=== PATIENT | female | born 1955 | race Caucasian/White ===

== ENCOUNTER 2023-11-24 11:05 | Inpatient (IN) | payer OTHER, MEDICARE ==
[~2023-11-24] VITALS: Ht 167.6 cm; Wt 97.5 kg
[2023-11-24] VITALS (7 sets, daily range): BP systolic 136–137; BP diastolic 69–95; PULSE 76–86; RESP 18–20; TEMP 97.9–98.6; O2SAT 97–99
[~2023-11-24 11:05] MED LIST: METOPROLOL SUCC50 MG PO
[2023-11-24 11:57] LABS: BASOPHILS % 0.1 % (0.0-1.0); HEMATOCRIT 41.2 % (34.2-44.1); HEMOGLOBIN 13.7 g/dL (12.0-16.0); LYMPHOCYTES % 10.9 % (18.0-39.1); MEAN CORPUSCULAR HEMOGLOBIN 31.5 pg (28-32); MEAN CORPUSCULAR HGB CONC 33.3 g/dL (31-35); MEAN CORPUSCULAR VOLUME 94.7 fL (81-99); MONOCYTES # (AUTO) 0.6 (0.2-0.8); MONOCYTES % 6.7 % (4.4-11.3); NEUTROPHILS # (AUTO) 7.5 (2.1-6.9); NEUTROPHILS % 81.9 % (38.7-80.0); PLATELET COUNT 223 x10e3/uL (140-360); RED BLOOD COUNT 4.35 x10e6/uL (3.6-5.1); RED CELL DISTRIBUTION WIDTH 12.5 % (11.7-14.4)
[2023-11-24] MEDS ORDERED: ONDANSETRON HCL INJ 2MG/ML 2ML 2 MG/ML VIAL ONE (12:00)
[2023-11-24] MEDS ORDERED: SODIUM CHLORIDE 0.9% 1000ML 1,000 ML ONE (12:01)
[2023-11-24] MEDS: ONDANSETRON HCL INJ 2MG/ML 2ML 2 MG/ML VIAL IV STA (12:04)
[2023-11-24] MEDS: SODIUM CHLORIDE 0.9% 1000ML 1,000 ML IV ONE (12:05)
[2023-11-24 12:10] LABS: ALANINE AMINOTRANSFERASE 23 IU/L (0-55); ALBUMIN 4.2 g/dL (3.5-5.0); ALBUMIN/GLOBULIN RATIO 1.3 (0.8-2.0); ALKALINE PHOSPHATASE 116 IU/L (40-150); ANION GAP 14.9 mmol/L (8-16); BILIRUBIN,TOTAL 0.6 mg/dL (0.2-1.2); BLOOD UREA NITROGEN 13 mg/dL (7-26); BUN/CREATININE RATIO 18 (6-25); CALCIUM 9.4 mg/dL (8.4-10.2); CARBON DIOXIDE 27 mmol/L (22-29); CHLORIDE 101 mmol/L (98-107); CREATINE KINASE 40 IU/L (29-168); CREATININE, SERUM 0.71 mg/dL (0.57-1.11); EST GLOMERULAR FILTRATION RATE 93 ML/MIN (>=60); GLUCOSE 124 mg/dL (74-118); POTASSIUM 3.9 mmol/L (3.5-5.1); SODIUM 139 mmol/L (136-145); TOTAL PROTEIN 7.5 g/dL (6.5-8.1)
[2023-11-24 12:20] LABS: TROPONIN I < 0.001 ng/mL (0-0.300)
[2023-11-24] MEDS ORDERED: BELLADONNA ALK/PHENOBARBITAL 5 ML UDC PO STA (12:26)
[2023-11-24] MEDS ORDERED: MAGNESIUM/ALUMINUM/SIMETHICONE 30 ML UDC PO ONE (12:30)
[2023-11-24] MEDS ORDERED: LIDOCAINE VISC 2% SOLN 15 ML UDC PO ONE (12:30)
[2023-11-24] MEDS: DONNATAL/LIDOCAINE/MAALOX 30 ML SUSP PO ONE (12:41)
[2023-11-24] MEDS ORDERED: IOPAMIDOL 370 MG/ML 100 ML INFUS..BTL INJ ONE (14:26)
[2023-11-24] MEDS: ONDANSETRON HCL INJ 2MG/ML 2ML 2 MG/ML VIAL IV PRN (14:45)
[2023-11-24] MEDS: Morphine 4mg INJECTION 4 MG/ML INJ IV PRN (14:46)
[2023-11-24] MEDS: ASPIRIN 81 MG CHEW TAB PO ONE (14:46)
[2023-11-24] MEDS: SODIUM CHLORIDE 0.9% 1000ML 1,000 ML IV SCH (15:59)
[2023-11-24] MEDS ORDERED: CENTRUM ADULTS1 EACH PO (16:51)
[2023-11-24] MEDS ORDERED: VITAMIN D350 MC1 PO (16:51)
[2023-11-24] MEDS ORDERED: OLMESARTAN-HCT1 EACH PO (16:51)
[2023-11-24] MEDS ORDERED: PRESERVISION A1 EAC2 (16:51)
[2023-11-24] MEDS ORDERED: ESCITALOPRAM OX20 MG PO (16:51)
[2023-11-24] MEDS ORDERED: ANASTROZOLE PO (16:51)
[2023-11-24] MEDS ORDERED: CALCIUM MAGNES1 EAC2 (16:51)
[2023-11-24] MEDS ORDERED: ATORVASTATIN CA20 MG PO (16:51)
[2023-11-24] MEDS: METOCLOPRAMIDE HCL 10 MG/2ML VIAL IV SCH (17:40)
[2023-11-25] VITALS (10 sets, daily range): BP systolic 121–141; BP diastolic 59–79; PULSE 50–89; RESP 17–20; TEMP 97.5–99.4; O2SAT 94–100
[2023-11-25] MEDS: ONDANSETRON HCL INJ 2MG/ML 2ML 2 MG/ML VIAL IV STA (01:51)
[2023-11-25] MEDS ORDERED: ONDANSETRON HCL INJ 2MG/ML 2ML 2 MG/ML VIAL IV PRN (02:15)
[2023-11-25 06:05] LABS: BASOPHILS % 0.1 % (0.0-1.0); HEMOGLOBIN 11.6 g/dL (12.0-16.0); LYMPHOCYTES % 10.5 % (18.0-39.1); MEAN CORPUSCULAR HEMOGLOBIN 31.3 pg (28-32); MEAN CORPUSCULAR HGB CONC 32.2 g/dL (31-35); MONOCYTES # (AUTO) 0.8 (0.2-0.8); MONOCYTES % 8.4 % (4.4-11.3); NEUTROPHILS # (AUTO) 7.5 (2.1-6.9); NEUTROPHILS % 80.3 % (38.7-80.0); PLATELET COUNT 163 x10e3/uL (140-360); RED BLOOD COUNT 3.71 x10e6/uL (3.6-5.1); RED CELL DISTRIBUTION WIDTH 12.7 % (11.7-14.4); WHITE BLOOD COUNT 9.36 x10e3/uL (4.8-10.8)
[2023-11-25 06:26] LABS: ANION GAP 11.5 mmol/L (8-16); CALCIUM 8.1 mg/dL (8.4-10.2); CREATININE, SERUM 0.63 mg/dL (0.57-1.11); POTASSIUM 3.5 mmol/L (3.5-5.1)
[2023-11-25] MEDS: METOPROLOL SUCCINATE 50 MG TAB XL PO SCH (08:41)
[2023-11-25] MEDS ORDERED: BENZOCAINE/TETRACAINE/BUTAMBEN AERO SPRAY 56 GM CAN ONE (16:23)
[2023-11-25] MEDS: ALBUTEROL SULF 0.083% NEB SOLN 3 ML NEB NEB ONE (17:06)
[2023-11-25] MEDS: ATORVASTATIN 20 MG TAB PO SCH (20:47)
[2023-11-26] VITALS (11 sets, daily range): BP systolic 112–141; BP diastolic 61–84; PULSE 71–94; RESP 15–19; TEMP 97.7–98.2; O2SAT 94–99
[2023-11-26] MEDS ORDERED: PROPOFOL IV EMULSION 10 MG/ML 20 ML VIAL ONE ×2 (11:03→11:49)
[2023-11-26] MEDS ORDERED: ONDANSETRON HCL INJ 2MG/ML 2ML 2 MG/ML VIAL ONE (11:03)
[2023-11-26] MEDS ORDERED: SEVOFLURANE INHAL SOLN 250 ML PEN BTL ONE ×2 (11:03→11:49)
[2023-11-26] MEDS ORDERED: LIDOCAINE HCL 2% LOCAL INJ 5 ML SDV VIAL INJ ONE ×2 (11:03→11:49)
[2023-11-26] MEDS ORDERED: DEXAMETHASONE SOD PHOS INJ 4 MG/ML SDV ONE (11:03)
[2023-11-26] MEDS ORDERED: ACETAMINOPHEN 1000 MG/100 ML IV ONE (11:03)
[2023-11-26] MEDS ORDERED: SUCCINYLCHOLINE CHLORIDE 20 MG/ML 10ML VIAL ONE ×2 (11:03→11:49)
[2023-11-26] MEDS ORDERED: ROCURONIUM BROMIDE 10 MG/ML 5ML VIAL IV ONE (11:03)
[2023-11-26] MEDS ORDERED: METOCLOPRAMIDE HCL 10 MG/2ML VIAL ONE (11:49)
[2023-11-26] MEDS ORDERED: PROPOFOL IV EMULSION 10 MG/ML 50 ML VIAL IV ONE (11:49)
[2023-11-26] MEDS ORDERED: FENTANYL CITRATE/PF 100MCG/2 ML INJ ONE (12:58)
[2023-11-26] MEDS ORDERED: KETAMINE 50MG/5ML SYR ONE (16:21)
[2023-11-26] MEDS ORDERED: ACETAMINOPHEN 1000 MG/100 ML IV PRN (18:45)
[2023-11-26] MEDS: SODIUM CHLORIDE 0.9% 250ML IRRIG IR SCH (18:45)
[2023-11-26] MEDS: HYDROMORPHONE 0.2MG/ML-SOD CHL 30ML PCA SYRINGE IV PRN (18:55)
[2023-11-26] MEDS: ONDANSETRON HCL INJ 2MG/ML 2ML 2 MG/ML VIAL ONE (19:35)
[2023-11-27] VITALS (22 sets, daily range): BP systolic 90–121; BP diastolic 48–79; PULSE 77–110; RESP 13–21; TEMP 97.9–98.4; O2SAT 89–99
[2023-11-27] MEDS: ALBUTEROL SULF 0.083% NEB SOLN 3 ML NEB ONE (06:07)
[2023-11-27 06:27] LABS: BASOPHILS % 0.2 % (0.0-1.0); HEMATOCRIT 33.3 % (34.2-44.1); HEMOGLOBIN 10.5 g/dL (12.0-16.0); LYMPHOCYTES # (AUTO) 1.5 (1.0-3.2); LYMPHOCYTES % 12.5 % (18.0-39.1); MEAN CORPUSCULAR HEMOGLOBIN 31.5 pg (28-32); MEAN CORPUSCULAR HGB CONC 31.5 g/dL (31-35); MONOCYTES # (AUTO) 1.3 (0.2-0.8); MONOCYTES % 10.7 % (4.4-11.3); NEUTROPHILS # (AUTO) 9.3 (2.1-6.9); NEUTROPHILS % 76.1 % (38.7-80.0); PLATELET COUNT 170 x10e3/uL (140-360); RED BLOOD COUNT 3.33 x10e6/uL (3.6-5.1); RED CELL DISTRIBUTION WIDTH 12.7 % (11.7-14.4); WHITE BLOOD COUNT 12.19 x10e3/uL (4.8-10.8)
[2023-11-27 06:55] LABS: ANION GAP 13.2 mmol/L (8-16); CALCIUM 7.7 mg/dL (8.4-10.2); CREATININE, SERUM 0.61 mg/dL (0.57-1.11)
[2023-11-27 07:15] LABS: POTASSIUM 3.2 mmol/L (3.5-5.1)
[2023-11-27] MEDS ORDERED: POTASSIUM CHLORIDE 20 MEQ in SODIUM CHLORIDE 0.45% 1,000 ML IV SCH (07:45)
[2023-11-27] MEDS: SOD CHL 0.45%/POT CHL 20MEQ 1,000 ML IV SCH (09:02)
[2023-11-27] MEDS: ROPIVACAINE 246.25 MG, EPINEPHRINE HCL 1:1000 1ML 0.5 MG, CLONIDINE HCL 0.08 MG, KETORO... IV ONE (19:27)
[2023-11-28] VITALS (12 sets, daily range): BP systolic 97–127; BP diastolic 55–66; PULSE 84–102; RESP 15–28; TEMP 98.2–100.7; O2SAT 93–100
[2023-11-28 06:36] LABS: BASOPHILS % 0.1 % (0.0-1.0); HEMATOCRIT 27.7 % (34.2-44.1); HEMOGLOBIN 8.9 g/dL (12.0-16.0); LYMPHOCYTES # (AUTO) 1.1 (1.0-3.2); LYMPHOCYTES % 5.3 % (18.0-39.1); MEAN CORPUSCULAR HEMOGLOBIN 31.6 pg (28-32); MEAN CORPUSCULAR HGB CONC 32.1 g/dL (31-35); MEAN CORPUSCULAR VOLUME 98.2 fL (81-99); MONOCYTES # (AUTO) 2.2 (0.2-0.8); MONOCYTES % 10.6 % (4.4-11.3); NEUTROPHILS # (AUTO) 17.2 (2.1-6.9); NEUTROPHILS % 83.4 % (38.7-80.0); PLATELET COUNT 228 x10e3/uL (140-360); RED BLOOD COUNT 2.82 x10e6/uL (3.6-5.1); RED CELL DISTRIBUTION WIDTH 12.8 % (11.7-14.4); WHITE BLOOD COUNT 20.67 x10e3/uL (4.8-10.8)
[2023-11-28 07:10] LABS: ANION GAP 10.8 mmol/L (8-16); CALCIUM 8.1 mg/dL (8.4-10.2); CREATININE, SERUM 0.58 mg/dL (0.57-1.11); POTASSIUM 3.8 mmol/L (3.5-5.1)
[2023-11-28] MEDS ORDERED: ACETAMINOPHEN 1000 MG/100 ML IV PRN (21:45)
[2023-11-29] VITALS (21 sets, daily range): BP systolic 108–139; BP diastolic 59–90; PULSE 86–116; RESP 15–26; TEMP 97.3–98.8; O2SAT 92–100
[2023-11-29 14:40] LABS: ANION GAP 21.9 mmol/L (8-16); CALCIUM 8.7 mg/dL (8.4-10.2); CREATININE, SERUM 0.56 mg/dL (0.57-1.11); POTASSIUM 3.9 mmol/L (3.5-5.1)
[2023-11-29] MEDS: ONDANSETRON HCL INJ 2MG/ML 2ML 2 MG/ML VIAL IV PRN (16:55)
[2023-11-29 18:02] LABS: BASOPHILS % 0.2 % (0.0-1.0); EOSINOPHILS # (AUTO) 0.1 (0.0-0.4); EOSINOPHILS % 0.7 % (0.0-6.0); HEMATOCRIT 26.4 % (34.2-44.1); HEMOGLOBIN 8.7 g/dL (12.0-16.0); LYMPHOCYTES % 4.7 % (18.0-39.1); MEAN CORPUSCULAR HEMOGLOBIN 31.6 pg (28-32); MONOCYTES % 9.8 % (4.4-11.3); NEUTROPHILS # (AUTO) 17.1 (2.1-6.9); NEUTROPHILS % 83.9 % (38.7-80.0); PLATELET COUNT 307 x10e3/uL (140-360); RED BLOOD COUNT 2.75 x10e6/uL (3.6-5.1); RED CELL DISTRIBUTION WIDTH 12.7 % (11.7-14.4); WHITE BLOOD COUNT 20.38 x10e3/uL (4.8-10.8)
[2023-11-30] VITALS (12 sets, daily range): BP systolic 121–130; BP diastolic 73–86; PULSE 93–119; RESP 18–24; TEMP 98–98.7; O2SAT 92–100
[2023-11-30 05:41] LABS: BASOPHILS % 0.2 % (0.0-1.0); EOSINOPHILS # (AUTO) 0.2 (0.0-0.4); HEMOGLOBIN 8.2 g/dL (12.0-16.0); LYMPHOCYTES % 5.3 % (18.0-39.1); MEAN CORPUSCULAR HEMOGLOBIN 31.7 pg (28-32); MEAN CORPUSCULAR HGB CONC 32.8 g/dL (31-35); MEAN CORPUSCULAR VOLUME 96.5 fL (81-99); MONOCYTES # (AUTO) 2.2 (0.2-0.8); MONOCYTES % 11.4 % (4.4-11.3); NEUTROPHILS # (AUTO) 15.8 (2.1-6.9); NEUTROPHILS % 81.5 % (38.7-80.0); PLATELET COUNT 321 x10e3/uL (140-360); RED BLOOD COUNT 2.59 x10e6/uL (3.6-5.1); RED CELL DISTRIBUTION WIDTH 12.7 % (11.7-14.4); WHITE BLOOD COUNT 19.41 x10e3/uL (4.8-10.8)
[2023-11-30 06:03] LABS: ANION GAP 12.9 mmol/L (8-16); CALCIUM 8.2 mg/dL (8.4-10.2); CREATININE, SERUM 0.54 mg/dL (0.57-1.11); POTASSIUM 3.9 mmol/L (3.5-5.1)
[2023-11-30] MEDS: FUROSEMIDE INJ 10 MG/ML 4 ML VIAL IV ONE (14:13)
[2023-11-30] MEDS: BISACODYL 10 MG SUPP PR ONE (14:13)
[2023-11-30] MEDS: LEVALBUTEROL HCL SOLN NEBU 0.63 MG/3 ML NEB IH SCH (14:47)
[2023-11-30] MEDS: HYDROMORPHONE 1MG/1ML INJ IV PRN (16:10)
[2023-11-30] MEDS ORDERED: LEVALBUTEROL 45 MCG IH SCH (18:00)
[2023-12-01] VITALS (11 sets, daily range): BP systolic 102–124; BP diastolic 67–80; PULSE 98–120; RESP 17–22; TEMP 98.1–98.9; O2SAT 97–100
[2023-12-01 06:01] LABS: ANION GAP 12.4 mmol/L (8-16); CALCIUM 8.1 mg/dL (8.4-10.2); CREATININE, SERUM 0.53 mg/dL (0.57-1.11)
[2023-12-01 06:02] LABS: POTASSIUM 3.4 mmol/L (3.5-5.1)
[2023-12-01] MEDS: OLMESARTAN 20 MG TAB PO SCH (08:55)
[2023-12-01] MEDS: HYDROCHLOROTHIAZIDE 25 MG TAB PO SCH (08:56)
[2023-12-01] MEDS ORDERED: HYDROCHLOROTHIAZIDE PO SCH (09:00)
[2023-12-01] MEDS ORDERED: OLMESARTAN PO SCH (09:00)
[2023-12-01] MEDS ORDERED: [UNRECOGNIZED DRUG - OTHER] PO SCH (09:00)
[2023-12-01] MEDS: FUROSEMIDE INJ 10 MG/ML 4 ML VIAL IV ONE (12:04)
[2023-12-01] MEDS: PANTOPRAZOLE SOD 40 MG TABEC PO SCH (12:04)
[2023-12-01] MEDS: HYDROCODONE/APAP 7.5MG-325MG 1 EA TAB PO PRN (14:24)
[2023-12-01] MEDS: POTASSIUM CHLORIDE 20MEQ/100ML 100 ML IV SCH (14:49)
[2023-12-02] VITALS (12 sets, daily range): BP systolic 89–121; BP diastolic 46–70; PULSE 67–118; RESP 17–20; TEMP 97.8–99.4; O2SAT 94–100
[2023-12-02 07:44] LABS: BASOPHILS % 0.2 % (0.0-1.0); EOSINOPHILS # (AUTO) 0.4 (0.0-0.4); EOSINOPHILS % 1.7 % (0.0-6.0); HEMATOCRIT 23.5 % (34.2-44.1); LYMPHOCYTES # (AUTO) 1.4 (1.0-3.2); LYMPHOCYTES % 6.4 % (18.0-39.1); MEAN CORPUSCULAR HEMOGLOBIN 31.3 pg (28-32); MEAN CORPUSCULAR HGB CONC 33.2 g/dL (31-35); MEAN CORPUSCULAR VOLUME 94.4 fL (81-99); MONOCYTES # (AUTO) 2.3 (0.2-0.8); MONOCYTES % 10.8 % (4.4-11.3); NEUTROPHILS # (AUTO) 16.9 (2.1-6.9); NEUTROPHILS % 79.9 % (38.7-80.0); PLATELET COUNT 442 x10e3/uL (140-360); RED BLOOD COUNT 2.49 x10e6/uL (3.6-5.1)
[2023-12-02 07:48] LABS: HEMOGLOBIN 7.8 g/dL (12.0-16.0)
[2023-12-02 07:56] LABS: EOSINOPHILS % (MANUAL) 2 % (0-7); LYMPHOCYTES % (MANUAL) 5 % (19-48); MONOCYTES % (MANUAL) 3 % (3.4-9.0); NEUTROPHILS % (MANUAL) 90 % (40-74); NUCLEATED RED BLOOD CELLS 1
[2023-12-02 07:58] LABS: PLATELET ESTIMATE ADEQUATE; PLATELET MORPHOLOGY COMMENT NORMAL; RBC MORPHOLOGY COMMENT NORMAL
[2023-12-02 09:52] LABS: ALANINE AMINOTRANSFERASE 22 IU/L (0-55); ALBUMIN 1.8 g/dL (3.5-5.0); ALBUMIN/GLOBULIN RATIO 0.5 (0.8-2.0); ALKALINE PHOSPHATASE 115 IU/L (40-150); BILIRUBIN,TOTAL 0.6 mg/dL (0.2-1.2); BLOOD UREA NITROGEN < 5 mg/dL (7-26); BUN/CREATININE RATIO 10 (6-25); CALCIUM 8.1 mg/dL (8.4-10.2); CHLORIDE 98 mmol/L (98-107); CREATININE, SERUM 0.48 mg/dL (0.57-1.11); EST GLOMERULAR FILTRATION RATE 104 ML/MIN (>=60); GLUCOSE 133 mg/dL (74-118); SODIUM 137 mmol/L (136-145); TOTAL PROTEIN 5.2 g/dL (6.5-8.1)
[2023-12-02 09:53] LABS: POTASSIUM 2.9 mmol/L (3.5-5.1)
[2023-12-02 10:27] LABS: ANION GAP 12.9 mmol/L (8-16); CARBON DIOXIDE 28 mmol/L (22-29)
[2023-12-02] MEDS: POTASSIUM CHLORIDE 20 MEQ TAB CR PO ONE (12:33)
[2023-12-03] VITALS (13 sets, daily range): BP systolic 90–106; BP diastolic 50–68; PULSE 101–121; RESP 18–20; TEMP 97.8–100.2; O2SAT 18–97
[2023-12-03] MEDS ORDERED: MAGNESIUM SULFATE 2GM/50ML 50 ML IV ONE (04:45)
[2023-12-03 06:36] LABS: BASOPHILS # (AUTO) 0.1 (0.0-0.1); BASOPHILS % 0.2 % (0.0-1.0); EOSINOPHILS # (AUTO) 0.3 (0.0-0.4); EOSINOPHILS % 1.3 % (0.0-6.0); HEMATOCRIT 23.5 % (34.2-44.1); HEMOGLOBIN 7.8 g/dL (12.0-16.0); LYMPHOCYTES # (AUTO) 1.5 (1.0-3.2); MEAN CORPUSCULAR HGB CONC 33.2 g/dL (31-35); MEAN CORPUSCULAR VOLUME 93.3 fL (81-99); MONOCYTES # (AUTO) 2.7 (0.2-0.8); MONOCYTES % 10.5 % (4.4-11.3); NEUTROPHILS # (AUTO) 20.1 (2.1-6.9); NEUTROPHILS % 79.4 % (38.7-80.0); PLATELET COUNT 520 x10e3/uL (140-360); RED BLOOD COUNT 2.52 x10e6/uL (3.6-5.1); RED CELL DISTRIBUTION WIDTH 13.2 % (11.7-14.4); WHITE BLOOD COUNT 25.31 x10e3/uL (4.8-10.8)
[2023-12-03 07:26] LABS: ALBUMIN 1.7 g/dL (3.5-5.0); ALBUMIN/GLOBULIN RATIO 0.5 (0.8-2.0); BILIRUBIN,TOTAL 0.7 mg/dL (0.2-1.2); CREATININE, SERUM 0.5 mg/dL (0.57-1.11); TOTAL PROTEIN 5.3 g/dL (6.5-8.1)
[2023-12-03] MEDS: MAGNESIUM SULFATE 2GM/50ML 50 ML IV ONE (09:19)
[2023-12-03 09:54] LABS: LYMPHOCYTES % (MANUAL) 9 % (19-48); MONOCYTES % (MANUAL) 7 % (3.4-9.0); NEUTROPHILS % (MANUAL) 84 % (40-74); NUCLEATED RED BLOOD CELLS 1; PLATELET ESTIMATE SLIGHTLY INCREASED; PLATELET MORPHOLOGY COMMENT NORMAL; RBC MORPHOLOGY COMMENT NORMAL
[2023-12-03 15:47] LABS: CALCIUM 8.2 mg/dL (8.4-10.2); POTASSIUM 3.5 mmol/L (3.5-5.1)
[2023-12-03 15:58] LABS: ANION GAP 21.5 mmol/L (8-16)
[2023-12-03] MEDS: SODIUM CHLORIDE 0.9% 1000ML 1,000 ML IV ONE (21:38)
[2023-12-03] MEDS: ACETAMINOPHEN 325 MG TAB PO PRN (21:39)
[2023-12-03] MEDS: Vancomycin IV 1 GM in SODIUM CHLORIDE 0.9% 250ML 250 ML IV ONE (21:39)
[2023-12-04] VITALS (11 sets, daily range): BP systolic 102–123; BP diastolic 57–74; PULSE 61–118; RESP 16–24; TEMP 97.7–99.5; O2SAT 94–100
[2023-12-04 06:40] LABS: BASOPHILS # (AUTO) 0.1 (0.0-0.1); BASOPHILS % 0.3 % (0.0-1.0); EOSINOPHILS # (AUTO) 0.1 (0.0-0.4); EOSINOPHILS % 0.3 % (0.0-6.0); HEMOGLOBIN 8.4 g/dL (12.0-16.0); LYMPHOCYTES # (AUTO) 0.8 (1.0-3.2); LYMPHOCYTES % 4.1 % (18.0-39.1); MEAN CORPUSCULAR HEMOGLOBIN 31.1 pg (28-32); MEAN CORPUSCULAR HGB CONC 33.6 g/dL (31-35); MEAN CORPUSCULAR VOLUME 92.6 fL (81-99); MONOCYTES # (AUTO) 0.9 (0.2-0.8); MONOCYTES % 4.9 % (4.4-11.3); NEUTROPHILS # (AUTO) 16.6 (2.1-6.9); NEUTROPHILS % 89.3 % (38.7-80.0); PLATELET COUNT 526 x10e3/uL (140-360); RED CELL DISTRIBUTION WIDTH 13.5 % (11.7-14.4); WHITE BLOOD COUNT 18.62 x10e3/uL (4.8-10.8)
[2023-12-04 07:29] LABS: ALBUMIN 1.6 g/dL (3.5-5.0); ALBUMIN/GLOBULIN RATIO 0.4 (0.8-2.0); BILIRUBIN,TOTAL 0.8 mg/dL (0.2-1.2); CALCIUM 9.1 mg/dL (8.4-10.2); CREATININE, SERUM 0.54 mg/dL (0.57-1.11); TOTAL PROTEIN 5.3 g/dL (6.5-8.1)
[2023-12-04 08:37] LABS: INR 1.16; PROTHROMBIN TIME 15.4 seconds (11.9-14.5)
[2023-12-04 08:38] LABS: PARTIAL THROMBOPLASTIN TIME 29.2 seconds (23.8-35.5)
[2023-12-04 09:19] LABS: ANION GAP 15.8 mmol/L (8-16); POTASSIUM 3.8 mmol/L (3.5-5.1)
[2023-12-04 11:24] LABS: BAND NEUTROPHILS % (MANUAL) 3 %; LYMPHOCYTES % (MANUAL) 6 % (19-48); MONOCYTES % (MANUAL) 10 % (3.4-9.0); NEUTROPHILS % (MANUAL) 81 % (40-74); PLATELET ESTIMATE ADEQUATE; PLATELET MORPHOLOGY COMMENT NORMAL
[2023-12-04] MEDS: FENTANYL CITRATE/PF 100MCG/2 ML INJ IV ONE ×2 (11:45→12:30)
[2023-12-04] MEDS: ONDANSETRON HCL INJ 2MG/ML 2ML 2 MG/ML VIAL IV ONE (11:45)
[2023-12-04 13:27] LABS: BODY FLUID APPEARANCE TURBID; BODY FLUID COLOR STRAW; BODY FLUID TYPE PERITONEAL
[2023-12-04 13:28] LABS: RBC,BODY FLUID 35000 cells/uL; WBC,BODY FLUID 21692 cells/uL
[2023-12-04] MEDS: FLUCONAZOLE 200 MG/100 ML 100 ML IV SCH (14:54)
[2023-12-04] MEDS: METOPROLOL SUCCINATE 50 MG TAB XL PO SCH (16:01)
[2023-12-04] MEDS: Vancomycin IV 1 GM in SODIUM CHLORIDE 0.9% 250ML 250 ML IV SCH (16:03)
[2023-12-05] VITALS (20 sets, daily range): BP systolic 73–110; BP diastolic 49–70; PULSE 87–123; RESP 16–27; TEMP 98–98.9; O2SAT 94–97
[2023-12-05 06:21] LABS: BASOPHILS # (AUTO) 0.1 (0.0-0.1); BASOPHILS % 0.2 % (0.0-1.0); EOSINOPHILS # (AUTO) 0.1 (0.0-0.4); EOSINOPHILS % 0.2 % (0.0-6.0); HEMATOCRIT 24.8 % (34.2-44.1); HEMOGLOBIN 8.3 g/dL (12.0-16.0); LYMPHOCYTES # (AUTO) 1.1 (1.0-3.2); LYMPHOCYTES % 4.3 % (18.0-39.1); MEAN CORPUSCULAR HGB CONC 33.5 g/dL (31-35); MEAN CORPUSCULAR VOLUME 92.5 fL (81-99); MONOCYTES # (AUTO) 1.3 (0.2-0.8); MONOCYTES % 5.5 % (4.4-11.3); NEUTROPHILS # (AUTO) 21.4 (2.1-6.9); NEUTROPHILS % 88.2 % (38.7-80.0); PLATELET COUNT 573 x10e3/uL (140-360); RED BLOOD COUNT 2.68 x10e6/uL (3.6-5.1); RED CELL DISTRIBUTION WIDTH 13.9 % (11.7-14.4); WHITE BLOOD COUNT 24.32 x10e3/uL (4.8-10.8)
[2023-12-05 06:38] LABS: ALBUMIN 1.7 g/dL (3.5-5.0); ALBUMIN/GLOBULIN RATIO 0.4 (0.8-2.0); ANION GAP 14.5 mmol/L (8-16); BILIRUBIN,TOTAL 0.6 mg/dL (0.2-1.2); CALCIUM 8.5 mg/dL (8.4-10.2); CREATININE, SERUM 0.54 mg/dL (0.57-1.11); POTASSIUM 3.5 mmol/L (3.5-5.1); TOTAL PROTEIN 5.5 g/dL (6.5-8.1)
[2023-12-05 09:00] LABS: LYMPHOCYTES % (MANUAL) 2 % (19-48); MONOCYTES % (MANUAL) 7 % (3.4-9.0); NEUTROPHILS % (MANUAL) 91 % (40-74); NUCLEATED RED BLOOD CELLS 1
[2023-12-05 09:01] LABS: PLATELET ESTIMATE MODERATELY INCREASED; RBC MORPHOLOGY COMMENT NORMAL
[2023-12-05 09:02] LABS: PLATELET MORPHOLOGY COMMENT FEW EDTA CLUMPING
[2023-12-05] MEDS: DIGOXIN INJ 0.25 MG/ML 2 ML AMP IV ONE (17:06)
[2023-12-05] MEDS: SODIUM CHLORIDE 0.9% 1000ML 500 ML IV ONE (21:20)
[2023-12-05] MEDS: MIDODRINE 2.5 MG TAB PO STA (22:50)
[2023-12-05 23:37] LABS: BASOPHILS # (AUTO) 0.1 (0.0-0.1); BASOPHILS % 0.3 % (0.0-1.0); HEMATOCRIT 23.9 % (34.2-44.1); HEMOGLOBIN 7.8 g/dL (12.0-16.0); LYMPHOCYTES # (AUTO) 0.9 (1.0-3.2); LYMPHOCYTES % 3.5 % (18.0-39.1); MEAN CORPUSCULAR HEMOGLOBIN 30.2 pg (28-32); MEAN CORPUSCULAR HGB CONC 32.6 g/dL (31-35); MEAN CORPUSCULAR VOLUME 92.6 fL (81-99); MONOCYTES # (AUTO) 1.8 (0.2-0.8); MONOCYTES % 6.9 % (4.4-11.3); NEUTROPHILS # (AUTO) 23.2 (2.1-6.9); NEUTROPHILS % 87.3 % (38.7-80.0); RED BLOOD COUNT 2.58 x10e6/uL (3.6-5.1); RED CELL DISTRIBUTION WIDTH 14.1 % (11.7-14.4)
[2023-12-05 23:38] LABS: PLATELET COUNT 578 x10e3/uL (140-360); WHITE BLOOD COUNT 26.55 x10e3/uL (4.8-10.8)
[2023-12-05 23:48] LABS: ANION GAP 16.9 mmol/L (8-16); CALCIUM 8.8 mg/dL (8.4-10.2); POTASSIUM 3.9 mmol/L (3.5-5.1)
[2023-12-05 23:57] LABS: CREATININE, SERUM 0.91 mg/dL (0.57-1.11)
[2023-12-06] VITALS (65 sets, daily range): BP systolic 80–127; BP diastolic 48–79; PULSE 76–146; RESP 16–37; TEMP 97.4–98.2; O2SAT 90–100
[2023-12-06] MEDS: SODIUM CHLORIDE 0.9% 1000ML 1,000 ML IV SCH (02:08)
[2023-12-06] MEDS: DEXTROSE 5%/0.45% SOD CHL 1,000 ML IV SCH (02:11)
[2023-12-06] MEDS ORDERED: FUROSEMIDE INJ 10 MG/ML 2 ML VIAL IV ONE (03:45)
[2023-12-06] MEDS: FUROSEMIDE INJ 10 MG/ML 2 ML VIAL IV ONE (03:50)
[2023-12-06 05:29] LABS: BASOPHILS # (AUTO) 0.1 (0.0-0.1); BASOPHILS % 0.3 % (0.0-1.0); HEMATOCRIT 21.9 % (34.2-44.1); HEMOGLOBIN 7.4 g/dL (12.0-16.0); LYMPHOCYTES # (AUTO) 0.9 (1.0-3.2); LYMPHOCYTES % 3.7 % (18.0-39.1); MEAN CORPUSCULAR HEMOGLOBIN 30.8 pg (28-32); MEAN CORPUSCULAR HGB CONC 33.8 g/dL (31-35); MEAN CORPUSCULAR VOLUME 91.3 fL (81-99); MONOCYTES # (AUTO) 2.1 (0.2-0.8); MONOCYTES % 8.3 % (4.4-11.3); NEUTROPHILS # (AUTO) 21.4 (2.1-6.9); NEUTROPHILS % 86.4 % (38.7-80.0); PLATELET COUNT 734 x10e3/uL (140-360); RED CELL DISTRIBUTION WIDTH 13.8 % (11.7-14.4); WHITE BLOOD COUNT 24.79 x10e3/uL (4.8-10.8)
[2023-12-06 05:55] LABS: ALBUMIN 1.5 g/dL (3.5-5.0); ALBUMIN/GLOBULIN RATIO 0.4 (0.8-2.0); ANION GAP 17.7 mmol/L (8-16); BILIRUBIN,TOTAL 0.6 mg/dL (0.2-1.2); CALCIUM 8.5 mg/dL (8.4-10.2); CREATININE, SERUM 0.8 mg/dL (0.57-1.11); POTASSIUM 3.7 mmol/L (3.5-5.1); TOTAL PROTEIN 5.4 g/dL (6.5-8.1)
[2023-12-06] MEDS: PANTOPRAZOLE SOD 40 MG TABEC PO SCH (08:49)
[2023-12-06] MEDS: MIDODRINE 2.5 MG TAB PO SCH (08:50)
[2023-12-06] MEDS ORDERED: HEPARIN SOD/DEXTROSE 5% 25000 UNIT/250 ML BAG IV SCH (10:00)
[2023-12-06] MEDS ORDERED: IOPAMIDOL 370 MG/ML 100 ML INFUS..BTL INJ ONE (10:15)
[2023-12-06] MEDS ORDERED: DIATRIZOATE MEGL/DIATRIZOA SOD 30 ML BTL PO ONE (10:15)
[2023-12-06 10:18] LABS: LYMPHOCYTES % (MANUAL) 4 % (19-48); NEUTROPHILS % (MANUAL) 84 % (40-74)
[2023-12-06 10:19] LABS: BAND NEUTROPHILS % (MANUAL) 6 %; MONOCYTES % (MANUAL) 6 % (3.4-9.0); NUCLEATED RED BLOOD CELLS 3; PLATELET ESTIMATE MODERATELY INCREASED; PLATELET MORPHOLOGY COMMENT NORMAL; RBC MORPHOLOGY COMMENT NORMAL; TOXIC GRANULATION SLIGHT
[2023-12-06] MEDS: ALTEPLASE RECOMBINANT 2 MG/2 ML VIAL IV PRN (10:51)
[2023-12-06] MEDS: HEPARIN 25,000 UNIT/D5W 250ML 250 ML IV SCH (13:24)
[2023-12-06] MEDS ORDERED: MICAFUNGIN SODIUM 100 MG IV SCH (14:45)
[2023-12-06] MEDS ORDERED: SODIUM CHLORIDE 0.9% 250ML 250 ML ONE (14:58)
[2023-12-06] MEDS ORDERED: Vancomycin IV 1 GM VIAL ONE (16:32)
[2023-12-06] MEDS: MICAFUNGIN SODIUM 100 MG in SODIUM CHLORIDE 0.9% 100 ML IV SCH (16:39)
[2023-12-06] MEDS: HEPARIN SOD (PORCINE) 5,000 UNIT/ML VIAL SC SCH (16:42)
[2023-12-07] VITALS (74 sets, daily range): BP systolic 75–141; BP diastolic 44–106; PULSE 92–141; RESP 12–38; TEMP 97.9–98.4; O2SAT 90–100
[2023-12-07 06:58] LABS: BASOPHILS # (AUTO) 0.1 (0.0-0.1); BASOPHILS % 0.4 % (0.0-1.0); HEMATOCRIT 24.7 % (34.2-44.1); HEMOGLOBIN 8.2 g/dL (12.0-16.0); LYMPHOCYTES # (AUTO) 1.2 (1.0-3.2); LYMPHOCYTES % 5.7 % (18.0-39.1); MEAN CORPUSCULAR HEMOGLOBIN 29.7 pg (28-32); MEAN CORPUSCULAR HGB CONC 33.2 g/dL (31-35); MEAN CORPUSCULAR VOLUME 89.5 fL (81-99); MONOCYTES # (AUTO) 2.4 (0.2-0.8); MONOCYTES % 11.3 % (4.4-11.3); NEUTROPHILS # (AUTO) 17.3 (2.1-6.9); NEUTROPHILS % 80.2 % (38.7-80.0); PLATELET COUNT 678 x10e3/uL (140-360); RED BLOOD COUNT 2.76 x10e6/uL (3.6-5.1); RED CELL DISTRIBUTION WIDTH 14.7 % (11.7-14.4); WHITE BLOOD COUNT 21.53 x10e3/uL (4.8-10.8)
[2023-12-07 07:20] LABS: % IRON SATURATION 13 % (15-50); IRON 23 ug/dL (50-170); TOTAL IRON BINDING CAPACITY 171 ug/dL (261-478); TRANSFERRIN 122 mg/dL (180-382)
[2023-12-07 07:22] LABS: ALBUMIN 1.5 g/dL (3.5-5.0); ALBUMIN/GLOBULIN RATIO 0.4 (0.8-2.0); ANION GAP 17.7 mmol/L (8-16); BILIRUBIN,TOTAL 0.6 mg/dL (0.2-1.2); CALCIUM 8.5 mg/dL (8.4-10.2); CREATININE, SERUM 0.68 mg/dL (0.57-1.11); POTASSIUM 3.7 mmol/L (3.5-5.1); TOTAL PROTEIN 5.6 g/dL (6.5-8.1)
[2023-12-07] MEDS ORDERED: LIDOCAINE HCL 2% LOCAL INJ 5 ML SDV VIAL INJ ONE (10:24)
[2023-12-07] MEDS ORDERED: ROCURONIUM BROMIDE 10 MG/ML 5ML VIAL IV ONE (10:24)
[2023-12-07] MEDS ORDERED: ETOMIDATE 2 MG/ML 10 ML INJ IV ONE (10:24)
[2023-12-07] MEDS ORDERED: ONDANSETRON HCL INJ 2MG/ML 2ML 2 MG/ML VIAL ONE (10:24)
[2023-12-07] MEDS ORDERED: AMIODARONE HCL INJ 150MG/3ML ONE (10:24)
[2023-12-07] MEDS ORDERED: SEVOFLURANE INHAL SOLN 250 ML PEN BTL ONE (10:24)
[2023-12-07] MEDS ORDERED: PHENYLEPHRINE HCL 1% 10 MG/ML VIAL ONE (10:24)
[2023-12-07] MEDS ORDERED: PROPOFOL IV EMULSION 10 MG/ML 20 ML VIAL ONE (10:24)
[2023-12-07] MEDS ORDERED: Morphine 10mg syringe 10 MG/ML INJ ONE (11:29)
[2023-12-07] MEDS ORDERED: MIDAZOLAM HCL 2 MG/2 ML VIAL ONE (11:29)
[2023-12-07] MEDS ORDERED: FENTANYL CITRATE/PF 100MCG/2 ML INJ ONE (11:29)
[2023-12-07] MEDS ORDERED: AMIODARONE 900MG 500 ML IV SCH (13:45)
[2023-12-07 14:47] LABS: BASOPHILS # (AUTO) 0.1 (0.0-0.1); BASOPHILS % 0.3 % (0.0-1.0); EOSINOPHILS % 0.2 % (0.0-6.0); HEMATOCRIT 23.5 % (34.2-44.1); HEMOGLOBIN 8.1 g/dL (12.0-16.0); LYMPHOCYTES # (AUTO) 1.2 (1.0-3.2); LYMPHOCYTES % 8.1 % (18.0-39.1); MEAN CORPUSCULAR HEMOGLOBIN 30.3 pg (28-32); MEAN CORPUSCULAR HGB CONC 34.5 g/dL (31-35); MONOCYTES # (AUTO) 0.6 (0.2-0.8); MONOCYTES % 4.1 % (4.4-11.3); NEUTROPHILS # (AUTO) 12.8 (2.1-6.9); PLATELET COUNT 604 x10e3/uL (140-360); RED BLOOD COUNT 2.67 x10e6/uL (3.6-5.1); RED CELL DISTRIBUTION WIDTH 14.7 % (11.7-14.4); WHITE BLOOD COUNT 15.02 x10e3/uL (4.8-10.8)
[2023-12-07] MEDS: IRON SUCROSE 100 MG in SODIUM CHLORIDE 0.9% 100 ML IV SCH (14:53)
[2023-12-07] MEDS: LACTATED RINGER'S 1,000 ML INJ SCH (15:12)
[2023-12-07 15:14] LABS: ANION GAP 13.5 mmol/L (8-16); CALCIUM 7.6 mg/dL (8.4-10.2); CREATININE, SERUM 0.58 mg/dL (0.57-1.11); POTASSIUM 3.5 mmol/L (3.5-5.1)
[2023-12-07 15:15] LABS: ABG HCO3 25 mmol/L (22-26); ABG PCO2 38 mmHg (35-45); ABG PH 7.43 (7.35-7.45); ABG PO2 104 mmHg (80-105); ABG TCO2 26
[2023-12-07] MEDS: HYDROMORPHONE 1MG/1ML INJ IV PRN (17:10)
[2023-12-07] MEDS: CENTRAL TPN FORMULA 1 BAG IV SCH (19:33)
[2023-12-07] MEDS: AMIODARONE 900MG 500 ML IV SCH (20:22)
[2023-12-08] VITALS (67 sets, daily range): BP systolic 89–136; BP diastolic 45–78; PULSE 84–121; RESP 16–33; TEMP 96.7–98.6; O2SAT 91–100
[2023-12-08] MEDS ORDERED: ACETAMINOPHEN 1000 MG/100 ML IV PRN (05:00)
[2023-12-08] MEDS: ACETAMINOPHEN 1000 MG/100 ML IV STA (05:14)
[2023-12-08 07:04] LABS: BASOPHILS # (AUTO) 0.1 (0.0-0.1); BASOPHILS % 0.4 % (0.0-1.0); EOSINOPHILS % 0.2 % (0.0-6.0); LYMPHOCYTES # (AUTO) 1.4 (1.0-3.2); LYMPHOCYTES % 7.2 % (18.0-39.1); MEAN CORPUSCULAR HEMOGLOBIN 29.8 pg (28-32); MEAN CORPUSCULAR HGB CONC 33.2 g/dL (31-35); MEAN CORPUSCULAR VOLUME 89.9 fL (81-99); MONOCYTES # (AUTO) 1.2 (0.2-0.8); MONOCYTES % 6.2 % (4.4-11.3); NEUTROPHILS # (AUTO) 15.7 (2.1-6.9); NEUTROPHILS % 80.1 % (38.7-80.0); PLATELET COUNT 617 x10e3/uL (140-360); RED BLOOD COUNT 2.48 x10e6/uL (3.6-5.1); RED CELL DISTRIBUTION WIDTH 15.1 % (11.7-14.4); WHITE BLOOD COUNT 19.63 x10e3/uL (4.8-10.8)
[2023-12-08 07:15] LABS: HEMATOCRIT 22.3 % (34.2-44.1); HEMOGLOBIN 7.4 g/dL (12.0-16.0)
[2023-12-08] MEDS: SODIUM CHLORIDE 0.9% 500ML 500 ML ONE (07:31)
[2023-12-08] MEDS: METOPROLOL TARTRATE INJ 1 MG/ML VIAL ONE (07:32)
[2023-12-08] MEDS: AMIODARONE HCL 100 ML IV ONE (07:32)
[2023-12-08] MEDS: SODIUM CHLORIDE 0.9% 250ML 250 ML IV ONE (07:32)
[2023-12-08 07:39] LABS: ALBUMIN 1.2 g/dL (3.5-5.0); ALBUMIN/GLOBULIN RATIO 0.4 (0.8-2.0); ANION GAP 13.2 mmol/L (8-16); BILIRUBIN,TOTAL 0.5 mg/dL (0.2-1.2); CALCIUM 7.8 mg/dL (8.4-10.2); CREATININE, SERUM 0.63 mg/dL (0.57-1.11); POTASSIUM 4.2 mmol/L (3.5-5.1); TOTAL PROTEIN 4.5 g/dL (6.5-8.1)
[2023-12-08] MEDS ORDERED: HEPARIN SOD/DEXTROSE 5% 25000 UNIT/250 ML BAG IV SCH (09:15)
[2023-12-08] MEDS ORDERED: HEPARIN 25,000 UNIT/D5W 250ML 250 ML IV SCH (09:30)
[2023-12-08 10:02] LABS: EOSINOPHILS % (MANUAL) 1 % (0-7); LYMPHOCYTES % (MANUAL) 9 % (19-48); MONOCYTES % (MANUAL) 4 % (3.4-9.0); MYELOCYTES % (MANUAL) 1 % (0-0); NEUTROPHILS % (MANUAL) 85 % (40-74)
[2023-12-08 10:03] LABS: NUCLEATED RED BLOOD CELLS 12; PLATELET ESTIMATE ADEQUATE; PLATELET MORPHOLOGY COMMENT NORMAL; RBC MORPHOLOGY COMMENT NORMAL
[2023-12-08 17:24] LABS: BODY FLUID APPEARANCE SL.CLOUDY; BODY FLUID COLOR STRAW; BODY FLUID TYPE PLEURAL
[2023-12-08] MEDS ORDERED: MENINGOCOCCAL POLYSACC VAC 50 MCG VIAL IM ONE (18:00)
[2023-12-08 18:01] LABS: WBC,BODY FLUID 1055 cells/uL
[2023-12-08 18:02] LABS: RBC,BODY FLUID 7000 cells/uL
[2023-12-08 19:18] LABS: LYMPHOCYTES,BODY FLUID 5 %; MONO/MACROPHG,BODY FLUID 36 %; NEUTROPHILS,BODY FLUID 59 %; TOTAL CELLS COUNTED (DIFF) 100
[2023-12-08] MEDS: CENTRAL TPN FORMULA 1 BAG IV SCH (20:38)
[2023-12-09] VITALS (86 sets, daily range): BP systolic 97–156; BP diastolic 60–115; PULSE 80–107; RESP 14–34; TEMP 96.7–99; O2SAT 90–100
[2023-12-09 06:04] LABS: BASOPHILS # (AUTO) 0.1 (0.0-0.1); BASOPHILS % 0.4 % (0.0-1.0); EOSINOPHILS # (AUTO) 0.2 (0.0-0.4); EOSINOPHILS % 0.6 % (0.0-6.0); HEMOGLOBIN 6.8 g/dL (12.0-16.0); LYMPHOCYTES % 6.4 % (18.0-39.1); MEAN CORPUSCULAR HGB CONC 33.3 g/dL (31-35); MONOCYTES # (AUTO) 1.5 (0.2-0.8); MONOCYTES % 4.7 % (4.4-11.3); NEUTROPHILS # (AUTO) 24.2 (2.1-6.9); NEUTROPHILS % 78.6 % (38.7-80.0); PLATELET COUNT 497 x10e3/uL (140-360); RED CELL DISTRIBUTION WIDTH 17.6 % (11.7-14.4)
[2023-12-09 06:15] LABS: HEMATOCRIT 20.4 % (34.2-44.1); WHITE BLOOD COUNT 30.78 x10e3/uL (4.8-10.8)
[2023-12-09 07:45] LABS: ALBUMIN 1.1 g/dL (3.5-5.0); ALBUMIN/GLOBULIN RATIO 0.3 (0.8-2.0); ANION GAP 10.2 mmol/L (8-16); BILIRUBIN,TOTAL 0.3 mg/dL (0.2-1.2); CALCIUM 7.7 mg/dL (8.4-10.2); CREATININE, SERUM 0.55 mg/dL (0.57-1.11); POTASSIUM 4.2 mmol/L (3.5-5.1); TOTAL PROTEIN 4.7 g/dL (6.5-8.1)
[2023-12-09 09:13] LABS: LYMPHOCYTES % (MANUAL) 7 % (19-48); MONOCYTES % (MANUAL) 6 % (3.4-9.0); NEUTROPHILS % (MANUAL) 87 % (40-74); NUCLEATED RED BLOOD CELLS 4
[2023-12-09 09:14] LABS: PLATELET ESTIMATE ADEQUATE; PLATELET MORPHOLOGY COMMENT NORMAL
[2023-12-09 09:15] LABS: ANISOCYTOSIS SLIGHT; HYPOCHROMASIA SLIGHT; RBC MORPHOLOGY COMMENT ABNORMAL; TOXIC GRANULATION SLIGHT
[2023-12-09] MEDS: SODIUM CHLORIDE 0.9% 250ML 250 ML IV ONE (11:17)
[2023-12-09] MEDS: ACETAMINOPHEN 1000 MG/100 ML IV ONE (12:35)
[2023-12-09 20:30] LABS: HEMATOCRIT 24.5 % (34.2-44.1)
[2023-12-09] MEDS: CENTRAL TPN FORMULA 1 BAG IV SCH (20:35)
[2023-12-10] VITALS (48 sets, daily range): BP systolic 93–171; BP diastolic 52–110; PULSE 66–114; RESP 16–29; TEMP 98–98.5; O2SAT 91–100
[2023-12-10] MEDS: HYDROMORPHONE 1MG/1ML INJ IV PRN (06:22)
[2023-12-10 07:06] LABS: BASOPHILS # (AUTO) 0.2 (0.0-0.1); BASOPHILS % 0.5 % (0.0-1.0); EOSINOPHILS # (AUTO) 0.3 (0.0-0.4); EOSINOPHILS % 0.9 % (0.0-6.0); HEMATOCRIT 25.1 % (34.2-44.1); HEMOGLOBIN 8.3 g/dL (12.0-16.0); LYMPHOCYTES # (AUTO) 1.7 (1.0-3.2); LYMPHOCYTES % 5.5 % (18.0-39.1); MEAN CORPUSCULAR HEMOGLOBIN 30.4 pg (28-32); MEAN CORPUSCULAR HGB CONC 33.1 g/dL (31-35); MEAN CORPUSCULAR VOLUME 91.9 fL (81-99); MONOCYTES # (AUTO) 1.9 (0.2-0.8); MONOCYTES % 6.1 % (4.4-11.3); NEUTROPHILS # (AUTO) 24.3 (2.1-6.9); NEUTROPHILS % 78.2 % (38.7-80.0); PLATELET COUNT 487 x10e3/uL (140-360); RED BLOOD COUNT 2.73 x10e6/uL (3.6-5.1); RED CELL DISTRIBUTION WIDTH 15.3 % (11.7-14.4); WHITE BLOOD COUNT 31.09 x10e3/uL (4.8-10.8)
[2023-12-10 07:27] LABS: ALBUMIN 1.2 g/dL (3.5-5.0); ALBUMIN/GLOBULIN RATIO 0.3 (0.8-2.0); ANION GAP 10.5 mmol/L (8-16); BILIRUBIN,TOTAL 0.4 mg/dL (0.2-1.2); CALCIUM 7.8 mg/dL (8.4-10.2); CREATININE, SERUM 0.48 mg/dL (0.57-1.11); POTASSIUM 4.5 mmol/L (3.5-5.1); TOTAL PROTEIN 5.1 g/dL (6.5-8.1)
[2023-12-10] MEDS: SODIUM CHLORIDE 0.9% 250ML 250 ML ONE (07:28)
[2023-12-10] MEDS: FUROSEMIDE INJ 10 MG/ML 4 ML VIAL IV ONE (09:28)
[2023-12-10 11:14] LABS: BAND NEUTROPHILS % (MANUAL) 2 %; EOSINOPHILS % (MANUAL) 3 % (0-7); LYMPHOCYTES % (MANUAL) 5 % (19-48); MONOCYTES % (MANUAL) 6 % (3.4-9.0); MYELOCYTES % (MANUAL) 2 % (0-0); NEUTROPHILS % (MANUAL) 82 % (40-74); NUCLEATED RED BLOOD CELLS 3
[2023-12-10 11:15] LABS: PLATELET ESTIMATE ADEQUATE; PLATELET MORPHOLOGY COMMENT NORMAL
[2023-12-10 11:16] LABS: RBC MORPHOLOGY COMMENT NORMAL
[2023-12-10] MEDS: CENTRAL TPN FORMULA 1 BAG IV SCH (19:56)
[2023-12-11] VITALS (30 sets, daily range): BP systolic 103–138; BP diastolic 60–97; PULSE 78–106; RESP 15–28; TEMP 97.8–98.5; O2SAT 91–100
[2023-12-11 06:51] LABS: BASOPHILS # (AUTO) 0.1 (0.0-0.1); BASOPHILS % 0.4 % (0.0-1.0); EOSINOPHILS # (AUTO) 0.3 (0.0-0.4); EOSINOPHILS % 1.1 % (0.0-6.0); HEMATOCRIT 25.9 % (34.2-44.1); HEMOGLOBIN 8.2 g/dL (12.0-16.0); LYMPHOCYTES # (AUTO) 1.7 (1.0-3.2); LYMPHOCYTES % 6.7 % (18.0-39.1); MEAN CORPUSCULAR HEMOGLOBIN 30.1 pg (28-32); MEAN CORPUSCULAR HGB CONC 31.7 g/dL (31-35); MEAN CORPUSCULAR VOLUME 95.2 fL (81-99); MONOCYTES # (AUTO) 1.5 (0.2-0.8); MONOCYTES % 5.9 % (4.4-11.3); NEUTROPHILS # (AUTO) 19.7 (2.1-6.9); NEUTROPHILS % 79.4 % (38.7-80.0); PLATELET COUNT 328 x10e3/uL (140-360); RED BLOOD COUNT 2.72 x10e6/uL (3.6-5.1); RED CELL DISTRIBUTION WIDTH 15.6 % (11.7-14.4)
[2023-12-11 07:08] LABS: ALBUMIN 1.1 g/dL (3.5-5.0); ALBUMIN/GLOBULIN RATIO 0.3 (0.8-2.0); ANION GAP 11.5 mmol/L (8-16); BILIRUBIN,TOTAL 0.3 mg/dL (0.2-1.2); CALCIUM 7.8 mg/dL (8.4-10.2); CREATININE, SERUM 0.47 mg/dL (0.57-1.11); POTASSIUM 4.5 mmol/L (3.5-5.1); TOTAL PROTEIN 5.1 g/dL (6.5-8.1)
[2023-12-11] MEDS: FUROSEMIDE INJ 10 MG/ML 4 ML VIAL IV ONE (08:29)
[2023-12-11] MEDS ORDERED: HEPARIN SOD/DEXTROSE 5% 25000 UNIT/250 ML BAG IV SCH (09:30)
[2023-12-11] MEDS: HEPARIN 25,000 UNIT/D5W 250ML 250 ML IV SCH (10:15)
[2023-12-11 12:05] LABS: BAND NEUTROPHILS % (MANUAL) 3 %; EOSINOPHILS % (MANUAL) 3 % (0-7); HYPOCHROMASIA MARKED; LYMPHOCYTES % (MANUAL) 2 % (19-48); METAMYELOCYTES % (MANUAL) 2 % (0-0); MICROCYTOSIS MODERATE; MONOCYTES % (MANUAL) 3 % (3.4-9.0); NEUTROPHILS % (MANUAL) 87 % (40-74); NUCLEATED RED BLOOD CELLS 10; PLATELET ESTIMATE ADEQUATE; PLATELET MORPHOLOGY COMMENT NORMAL
[2023-12-11] MEDS: NALOXONE HCL INJ 0.4 MG/ML AMP IV PRN (23:13)
[2023-12-12] VITALS (29 sets, daily range): BP systolic 95–144; BP diastolic 55–118; PULSE 80–99; RESP 10–28; TEMP 98.2; O2SAT 89–100
[2023-12-12 05:51] LABS: BASOPHILS # (AUTO) 0.1 (0.0-0.1); BASOPHILS % 0.3 % (0.0-1.0); EOSINOPHILS # (AUTO) 0.3 (0.0-0.4); EOSINOPHILS % 1.3 % (0.0-6.0); HEMATOCRIT 24.9 % (34.2-44.1); HEMOGLOBIN 7.7 g/dL (12.0-16.0); LYMPHOCYTES # (AUTO) 1.3 (1.0-3.2); LYMPHOCYTES % 6.6 % (18.0-39.1); MEAN CORPUSCULAR HEMOGLOBIN 29.5 pg (28-32); MEAN CORPUSCULAR HGB CONC 30.9 g/dL (31-35); MEAN CORPUSCULAR VOLUME 95.4 fL (81-99); MONOCYTES # (AUTO) 1.5 (0.2-0.8); MONOCYTES % 7.4 % (4.4-11.3); NEUTROPHILS # (AUTO) 16.2 (2.1-6.9); NEUTROPHILS % 79.6 % (38.7-80.0); PLATELET COUNT 383 x10e3/uL (140-360); RED BLOOD COUNT 2.61 x10e6/uL (3.6-5.1); RED CELL DISTRIBUTION WIDTH 16.8 % (11.7-14.4); WHITE BLOOD COUNT 20.37 x10e3/uL (4.8-10.8)
[2023-12-12 06:03] LABS: ANION GAP 10.3 mmol/L (8-16); CALCIUM 7.7 mg/dL (8.4-10.2); CREATININE, SERUM 0.48 mg/dL (0.57-1.11); POTASSIUM 4.3 mmol/L (3.5-5.1)
[2023-12-12] MEDS: FUROSEMIDE INJ 10 MG/ML 2 ML VIAL IV ONE (13:31)
[2023-12-12] MEDS: ENOXAPARIN SOD INJ 60 MG/0.6 ML SYR SC SCH (17:19)
[2023-12-13] VITALS (28 sets, daily range): BP systolic 94–158; BP diastolic 67–110; PULSE 80–106; RESP 14–29; TEMP 97.5–98.8; O2SAT 93–100
[2023-12-13 06:32] LABS: BASOPHILS # (AUTO) 0.1 (0.0-0.1); BASOPHILS % 0.3 % (0.0-1.0); EOSINOPHILS # (AUTO) 0.3 (0.0-0.4); EOSINOPHILS % 1.5 % (0.0-6.0); HEMATOCRIT 25.7 % (34.2-44.1); LYMPHOCYTES # (AUTO) 1.2 (1.0-3.2); LYMPHOCYTES % 6.4 % (18.0-39.1); MEAN CORPUSCULAR HEMOGLOBIN 29.6 pg (28-32); MEAN CORPUSCULAR HGB CONC 31.1 g/dL (31-35); MEAN CORPUSCULAR VOLUME 95.2 fL (81-99); MONOCYTES # (AUTO) 1.4 (0.2-0.8); MONOCYTES % 7.5 % (4.4-11.3); NEUTROPHILS % 81.5 % (38.7-80.0); PLATELET COUNT 546 x10e3/uL (140-360); RED CELL DISTRIBUTION WIDTH 17.1 % (11.7-14.4); WHITE BLOOD COUNT 18.42 x10e3/uL (4.8-10.8)
[2023-12-13 07:07] LABS: ALBUMIN 1.2 g/dL (3.5-5.0); ALBUMIN/GLOBULIN RATIO 0.3 (0.8-2.0); ANION GAP 10.4 mmol/L (8-16); BILIRUBIN,TOTAL 0.5 mg/dL (0.2-1.2); CALCIUM 8.2 mg/dL (8.4-10.2); CREATININE, SERUM 0.46 mg/dL (0.57-1.11); MAGNESIUM 1.8 MG/DL (1.3-2.1); POTASSIUM 4.4 mmol/L (3.5-5.1); TOTAL PROTEIN 5.6 g/dL (6.5-8.1)
[2023-12-13 07:18] LABS: TOTAL PROTEIN,BODY FLUID 2.1 g/dL
[2023-12-13] MEDS: FUROSEMIDE INJ 10 MG/ML 2 ML VIAL IV ONE (19:55)
[2023-12-13] MEDS: CENTRAL TPN FORMULA 1 BAG IV SCH (20:01)
[2023-12-13] MEDS: BISACODYL 10 MG SUPP PR SCH (21:14)
[2023-12-14] VITALS (47 sets, daily range): BP systolic 89–160; BP diastolic 51–147; PULSE 91–139; RESP 15–32; TEMP 98–98.6; O2SAT 89–100
[2023-12-14] MEDS: FUROSEMIDE INJ 10 MG/ML 2 ML VIAL IV STA (00:12)
[2023-12-14] MEDS: LORAZEPAM INJ 2 MG/ML VIAL IV PRN (04:15)
[2023-12-14] MEDS: LORAZEPAM INJ 2 MG/ML VIAL ONE (04:18)
[2023-12-14 05:46] LABS: BASOPHILS % 0.3 % (0.0-1.0); EOSINOPHILS # (AUTO) 0.3 (0.0-0.4); EOSINOPHILS % 1.7 % (0.0-6.0); HEMATOCRIT 23.6 % (34.2-44.1); LYMPHOCYTES # (AUTO) 1.1 (1.0-3.2); LYMPHOCYTES % 7.2 % (18.0-39.1); MEAN CORPUSCULAR HEMOGLOBIN 30.1 pg (28-32); MEAN CORPUSCULAR HGB CONC 31.8 g/dL (31-35); MEAN CORPUSCULAR VOLUME 94.8 fL (81-99); MONOCYTES # (AUTO) 1.4 (0.2-0.8); MONOCYTES % 9.2 % (4.4-11.3); NEUTROPHILS # (AUTO) 12.5 (2.1-6.9); NEUTROPHILS % 79.9 % (38.7-80.0); PLATELET COUNT 614 x10e3/uL (140-360); RED BLOOD COUNT 2.49 x10e6/uL (3.6-5.1); RED CELL DISTRIBUTION WIDTH 17.1 % (11.7-14.4)
[2023-12-14 05:51] LABS: HEMOGLOBIN 7.5 g/dL (12.0-16.0)
[2023-12-14 06:10] LABS: ALBUMIN 1.2 g/dL (3.5-5.0); ALBUMIN/GLOBULIN RATIO 0.3 (0.8-2.0); ANION GAP 9.9 mmol/L (8-16); BILIRUBIN,TOTAL 0.6 mg/dL (0.2-1.2); CALCIUM 7.9 mg/dL (8.4-10.2); CREATININE, SERUM 0.49 mg/dL (0.57-1.11); POTASSIUM 3.9 mmol/L (3.5-5.1); TOTAL PROTEIN 5.5 g/dL (6.5-8.1)
[2023-12-14] MEDS ORDERED: MICAFUNGIN SODIUM 100 MG IV SCH (13:30)
[2023-12-14] MEDS: MICAFUNGIN SODIUM 100 MG in SODIUM CHLORIDE 0.9% 100 ML IV SCH (16:39)
[2023-12-14] MEDS: CENTRAL TPN FORMULA 1 BAG IV SCH (21:35)
[2023-12-15] VITALS (38 sets, daily range): BP systolic 106–162; BP diastolic 61–139; PULSE 75–102; RESP 14–31; TEMP 97.6–98.2; O2SAT 87–100
[2023-12-15 07:10] LABS: BASOPHILS % 0.1 % (0.0-1.0); EOSINOPHILS # (AUTO) 0.3 (0.0-0.4); EOSINOPHILS % 1.6 % (0.0-6.0); HEMATOCRIT 24.9 % (34.2-44.1); HEMOGLOBIN 7.6 g/dL (12.0-16.0); LYMPHOCYTES # (AUTO) 1.1 (1.0-3.2); LYMPHOCYTES % 7.3 % (18.0-39.1); MEAN CORPUSCULAR HEMOGLOBIN 29.5 pg (28-32); MEAN CORPUSCULAR HGB CONC 30.5 g/dL (31-35); MEAN CORPUSCULAR VOLUME 96.5 fL (81-99); MONOCYTES # (AUTO) 1.6 (0.2-0.8); MONOCYTES % 10.6 % (4.4-11.3); NEUTROPHILS # (AUTO) 12.2 (2.1-6.9); NEUTROPHILS % 79.3 % (38.7-80.0); PLATELET COUNT 734 x10e3/uL (140-360); RED BLOOD COUNT 2.58 x10e6/uL (3.6-5.1); RED CELL DISTRIBUTION WIDTH 17.2 % (11.7-14.4); WHITE BLOOD COUNT 15.42 x10e3/uL (4.8-10.8)
[2023-12-15 07:36] LABS: ALBUMIN 1.3 g/dL (3.5-5.0); ALBUMIN/GLOBULIN RATIO 0.3 (0.8-2.0); ANION GAP 9.1 mmol/L (8-16); BILIRUBIN,TOTAL 0.5 mg/dL (0.2-1.2); CALCIUM 8.1 mg/dL (8.4-10.2); CREATININE, SERUM 0.47 mg/dL (0.57-1.11); POTASSIUM 4.1 mmol/L (3.5-5.1); TOTAL PROTEIN 5.9 g/dL (6.5-8.1)
[2023-12-15] MEDS: FUROSEMIDE INJ 10 MG/ML 2 ML VIAL IV ONE (14:57)
[2023-12-15] MEDS: CENTRAL TPN FORMULA 1 BAG IV SCH (20:50)
[2023-12-16] VITALS (26 sets, daily range): BP systolic 103–146; BP diastolic 62–128; PULSE 58–100; RESP 15–38; TEMP 98–100; O2SAT 90–100
[2023-12-16] MEDS: FUROSEMIDE INJ 10 MG/ML 2 ML VIAL IV ONE ×2 (01:00→18:24)
[2023-12-16] MEDS: CEPACOL SORE THROAT LOZENGES PO PRN (02:13)
[2023-12-16 07:13] LABS: BASOPHILS # (AUTO) 0.1 (0.0-0.1); BASOPHILS % 0.3 % (0.0-1.0); EOSINOPHILS # (AUTO) 0.4 (0.0-0.4); EOSINOPHILS % 2.1 % (0.0-6.0); HEMATOCRIT 24.4 % (34.2-44.1); HEMOGLOBIN 7.6 g/dL (12.0-16.0); LYMPHOCYTES # (AUTO) 1.2 (1.0-3.2); LYMPHOCYTES % 6.9 % (18.0-39.1); MEAN CORPUSCULAR HEMOGLOBIN 29.9 pg (28-32); MEAN CORPUSCULAR HGB CONC 31.1 g/dL (31-35); MEAN CORPUSCULAR VOLUME 96.1 fL (81-99); MONOCYTES # (AUTO) 1.9 (0.2-0.8); MONOCYTES % 11.1 % (4.4-11.3); NEUTROPHILS # (AUTO) 13.7 (2.1-6.9); NEUTROPHILS % 78.9 % (38.7-80.0); PLATELET COUNT 691 x10e3/uL (140-360); RED BLOOD COUNT 2.54 x10e6/uL (3.6-5.1); RED CELL DISTRIBUTION WIDTH 17.2 % (11.7-14.4); WHITE BLOOD COUNT 17.42 x10e3/uL (4.8-10.8)
[2023-12-16 07:46] LABS: ALBUMIN 1.3 g/dL (3.5-5.0); ALBUMIN/GLOBULIN RATIO 0.3 (0.8-2.0); ANION GAP 11.1 mmol/L (8-16); BILIRUBIN,TOTAL 0.6 mg/dL (0.2-1.2); CALCIUM 7.9 mg/dL (8.4-10.2); CREATININE, SERUM 0.47 mg/dL (0.57-1.11); MAGNESIUM 1.9 MG/DL (1.3-2.1); POTASSIUM 4.1 mmol/L (3.5-5.1); TOTAL PROTEIN 6.1 g/dL (6.5-8.1)
[2023-12-16] MEDS ORDERED: DIATRIZOATE MEGL/DIATRIZOA SOD 120 ML BTL PO ONE (13:42)
[2023-12-17] VITALS (31 sets, daily range): BP systolic 109–147; BP diastolic 61–126; PULSE 78–101; RESP 12–33; TEMP 97.7–99.9; O2SAT 91–100
[2023-12-17] MEDS: FUROSEMIDE INJ 10 MG/ML 2 ML VIAL IV ONE ×2 (04:11→11:45)
[2023-12-17 06:05] LABS: BASOPHILS % 0.3 % (0.0-1.0); EOSINOPHILS # (AUTO) 0.3 (0.0-0.4); EOSINOPHILS % 2.3 % (0.0-6.0); HEMATOCRIT 24.7 % (34.2-44.1); HEMOGLOBIN 7.6 g/dL (12.0-16.0); LYMPHOCYTES # (AUTO) 1.1 (1.0-3.2); LYMPHOCYTES % 7.2 % (18.0-39.1); MEAN CORPUSCULAR HEMOGLOBIN 29.3 pg (28-32); MEAN CORPUSCULAR HGB CONC 30.8 g/dL (31-35); MEAN CORPUSCULAR VOLUME 95.4 fL (81-99); MONOCYTES # (AUTO) 1.5 (0.2-0.8); MONOCYTES % 10.5 % (4.4-11.3); NEUTROPHILS # (AUTO) 11.6 (2.1-6.9); NEUTROPHILS % 78.9 % (38.7-80.0); PLATELET COUNT 776 x10e3/uL (140-360); RED BLOOD COUNT 2.59 x10e6/uL (3.6-5.1); RED CELL DISTRIBUTION WIDTH 17.1 % (11.7-14.4); WHITE BLOOD COUNT 14.68 x10e3/uL (4.8-10.8)
[2023-12-17 06:45] LABS: ALBUMIN 1.4 g/dL (3.5-5.0); ALBUMIN/GLOBULIN RATIO 0.3 (0.8-2.0); ANION GAP 10.8 mmol/L (8-16); BILIRUBIN,TOTAL 0.6 mg/dL (0.2-1.2); CALCIUM 7.9 mg/dL (8.4-10.2); CREATININE, SERUM 0.49 mg/dL (0.57-1.11); POTASSIUM 3.8 mmol/L (3.5-5.1); TOTAL PROTEIN 6.2 g/dL (6.5-8.1)
[2023-12-17] MEDS: HYDROMORPHONE 1MG/1ML INJ IV PRN (09:14)
[2023-12-17] MEDS: CENTRAL TPN FORMULA 1 BAG IV SCH (19:58)
[2023-12-18] VITALS (35 sets, daily range): BP systolic 109–171; BP diastolic 66–132; PULSE 84–107; RESP 16–33; TEMP 98.4–98.8; O2SAT 87–100
[2023-12-18] MEDS: FUROSEMIDE INJ 10 MG/ML 2 ML VIAL IV ONE ×2 (01:39→17:27)
[2023-12-18] MEDS: FUROSEMIDE INJ 10 MG/ML 2 ML VIAL IV STA (01:48)
[2023-12-18 06:53] LABS: BASOPHILS % 0.1 % (0.0-1.0); EOSINOPHILS # (AUTO) 0.4 (0.0-0.4); EOSINOPHILS % 2.7 % (0.0-6.0); HEMATOCRIT 26.2 % (34.2-44.1); LYMPHOCYTES # (AUTO) 1.3 (1.0-3.2); LYMPHOCYTES % 8.7 % (18.0-39.1); MEAN CORPUSCULAR HGB CONC 30.5 g/dL (31-35); MEAN CORPUSCULAR VOLUME 94.9 fL (81-99); MONOCYTES # (AUTO) 1.6 (0.2-0.8); MONOCYTES % 11.3 % (4.4-11.3); NEUTROPHILS % 76.6 % (38.7-80.0); PLATELET COUNT 805 x10e3/uL (140-360); RED BLOOD COUNT 2.76 x10e6/uL (3.6-5.1); RED CELL DISTRIBUTION WIDTH 17.2 % (11.7-14.4); WHITE BLOOD COUNT 14.39 x10e3/uL (4.8-10.8)
[2023-12-18 07:10] LABS: ALBUMIN 1.4 g/dL (3.5-5.0); ALBUMIN/GLOBULIN RATIO 0.3 (0.8-2.0); ANION GAP 9.1 mmol/L (8-16); BILIRUBIN,TOTAL 0.5 mg/dL (0.2-1.2); CALCIUM 7.9 mg/dL (8.4-10.2); CREATININE, SERUM 0.5 mg/dL (0.57-1.11); POTASSIUM 4.1 mmol/L (3.5-5.1); TOTAL PROTEIN 6.4 g/dL (6.5-8.1)
[2023-12-18] MEDS: CENTRAL TPN FORMULA 1 BAG IV SCH (19:19)
[2023-12-19] VITALS (22 sets, daily range): BP systolic 103–142; BP diastolic 60–94; PULSE 79–107; RESP 16–30; TEMP 97.7–98.5; O2SAT 92–100
[2023-12-19] MEDS: FUROSEMIDE INJ 10 MG/ML 2 ML VIAL IV ONE (05:41)
[2023-12-19 08:50] LABS: ALBUMIN 1.4 g/dL (3.5-5.0); ALBUMIN/GLOBULIN RATIO 0.3 (0.8-2.0); ANION GAP 13.2 mmol/L (8-16); BILIRUBIN,TOTAL 0.4 mg/dL (0.2-1.2); CREATININE, SERUM 0.52 mg/dL (0.57-1.11); POTASSIUM 4.2 mmol/L (3.5-5.1); TOTAL PROTEIN 6.5 g/dL (6.5-8.1)
[2023-12-19 09:04] LABS: BASOPHILS # (AUTO) 0.1 (0.0-0.1); BASOPHILS % 0.5 % (0.0-1.0); EOSINOPHILS # (AUTO) 0.4 (0.0-0.4); EOSINOPHILS % 3.2 % (0.0-6.0); HEMATOCRIT 25.7 % (34.2-44.1); LYMPHOCYTES # (AUTO) 1.1 (1.0-3.2); LYMPHOCYTES % 8.6 % (18.0-39.1); MEAN CORPUSCULAR HEMOGLOBIN 29.6 pg (28-32); MEAN CORPUSCULAR HGB CONC 31.1 g/dL (31-35); MEAN CORPUSCULAR VOLUME 95.2 fL (81-99); MONOCYTES # (AUTO) 1.6 (0.2-0.8); MONOCYTES % 12.1 % (4.4-11.3); NEUTROPHILS # (AUTO) 9.7 (2.1-6.9); NEUTROPHILS % 75.1 % (38.7-80.0); PLATELET COUNT 734 x10e3/uL (140-360); RED CELL DISTRIBUTION WIDTH 17.3 % (11.7-14.4); WHITE BLOOD COUNT 12.89 x10e3/uL (4.8-10.8)
[2023-12-19] MEDS ORDERED: LEVALBUTEROL HCL SOLN NEBU 0.63 MG/3 ML NEB ONE (10:32)
[2023-12-19] MEDS: KETOROLAC TROMETHAMINE 30 MG/ML VIAL IV PRN (19:50)
[2023-12-19] MEDS: CENTRAL TPN FORMULA 1 BAG IV SCH (19:54)
[2023-12-20] VITALS (27 sets, daily range): BP systolic 103–186; BP diastolic 65–106; PULSE 66–107; RESP 14–37; TEMP 97.9–98.4; O2SAT 96–100
[2023-12-20 06:46] LABS: BASOPHILS % 0.1 % (0.0-1.0); EOSINOPHILS # (AUTO) 0.5 (0.0-0.4); EOSINOPHILS % 4.3 % (0.0-6.0); HEMATOCRIT 26.9 % (34.2-44.1); MEAN CORPUSCULAR HEMOGLOBIN 28.9 pg (28-32); MEAN CORPUSCULAR HGB CONC 29.7 g/dL (31-35); MEAN CORPUSCULAR VOLUME 97.1 fL (81-99); MONOCYTES # (AUTO) 1.1 (0.2-0.8); NEUTROPHILS # (AUTO) 8.2 (2.1-6.9); NEUTROPHILS % 75.9 % (38.7-80.0); PLATELET COUNT 698 x10e3/uL (140-360); RED BLOOD COUNT 2.77 x10e6/uL (3.6-5.1); RED CELL DISTRIBUTION WIDTH 17.4 % (11.7-14.4); WHITE BLOOD COUNT 10.76 x10e3/uL (4.8-10.8)
[2023-12-20 07:13] LABS: ALBUMIN 1.4 g/dL (3.5-5.0); ALBUMIN/GLOBULIN RATIO 0.3 (0.8-2.0); ANION GAP 11.3 mmol/L (8-16); BILIRUBIN,TOTAL 0.4 mg/dL (0.2-1.2); CREATININE, SERUM 0.53 mg/dL (0.57-1.11); POTASSIUM 4.3 mmol/L (3.5-5.1); TOTAL PROTEIN 6.3 g/dL (6.5-8.1)
[2023-12-20] MEDS: ENOXAPARIN SOD INJ 60 MG/0.6 ML SYR SC SCH (16:26)
[2023-12-20] MEDS: CENTRAL TPN FORMULA 1 BAG IV SCH (20:03)
[2023-12-20] MEDS: FUROSEMIDE INJ 10 MG/ML 2 ML VIAL IV ONE (22:21)
[2023-12-21] VITALS (40 sets, daily range): BP systolic 103–145; BP diastolic 65–118; PULSE 73–112; RESP 20–43; TEMP 97.6–99.1; O2SAT 95–100
[2023-12-21 06:35] LABS: EOSINOPHILS # (AUTO) 0.5 (0.0-0.4); EOSINOPHILS % 4.8 % (0.0-6.0); HEMATOCRIT 26.8 % (34.2-44.1); HEMOGLOBIN 8.2 g/dL (12.0-16.0); LYMPHOCYTES # (AUTO) 1.2 (1.0-3.2); MEAN CORPUSCULAR HEMOGLOBIN 29.7 pg (28-32); MEAN CORPUSCULAR HGB CONC 30.6 g/dL (31-35); MEAN CORPUSCULAR VOLUME 97.1 fL (81-99); MONOCYTES # (AUTO) 1.1 (0.2-0.8); MONOCYTES % 10.9 % (4.4-11.3); NEUTROPHILS # (AUTO) 7.6 (2.1-6.9); NEUTROPHILS % 72.6 % (38.7-80.0); PLATELET COUNT 712 x10e3/uL (140-360); RED BLOOD COUNT 2.76 x10e6/uL (3.6-5.1); RED CELL DISTRIBUTION WIDTH 17.8 % (11.7-14.4); WHITE BLOOD COUNT 10.41 x10e3/uL (4.8-10.8)
[2023-12-21 07:21] LABS: ALBUMIN 1.5 g/dL (3.5-5.0); ALBUMIN/GLOBULIN RATIO 0.3 (0.8-2.0); BILIRUBIN,TOTAL 0.4 mg/dL (0.2-1.2); CALCIUM 7.9 mg/dL (8.4-10.2); CREATININE, SERUM 0.51 mg/dL (0.57-1.11); TOTAL PROTEIN 6.6 g/dL (6.5-8.1)
[2023-12-21 13:11] LABS: % IRON SATURATION 16 % (15-50); IRON 33 ug/dL (50-170); TOTAL IRON BINDING CAPACITY 206 ug/dL (261-478); TRANSFERRIN 147 mg/dL (180-382)
[2023-12-21] MEDS: LIDOCAINE 4% PATCH TP SCH (16:11)
[2023-12-21] MEDS: CENTRAL TPN FORMULA 1 BAG IV SCH (19:15)
[2023-12-22] VITALS (43 sets, daily range): BP systolic 111–145; BP diastolic 66–92; PULSE 26–117; RESP 18–42; TEMP 98–98.8; O2SAT 81–100
[2023-12-22] MEDS: FUROSEMIDE INJ 10 MG/ML 2 ML VIAL IV ONE (04:31)
[2023-12-22 06:33] LABS: BASOPHILS # (AUTO) 0.1 (0.0-0.1); BASOPHILS % 0.6 % (0.0-1.0); EOSINOPHILS # (AUTO) 0.5 (0.0-0.4); EOSINOPHILS % 4.8 % (0.0-6.0); HEMATOCRIT 26.3 % (34.2-44.1); LYMPHOCYTES # (AUTO) 1.2 (1.0-3.2); LYMPHOCYTES % 11.5 % (18.0-39.1); MEAN CORPUSCULAR HEMOGLOBIN 28.9 pg (28-32); MEAN CORPUSCULAR HGB CONC 30.4 g/dL (31-35); MEAN CORPUSCULAR VOLUME 94.9 fL (81-99); MONOCYTES # (AUTO) 1.3 (0.2-0.8); MONOCYTES % 12.4 % (4.4-11.3); NEUTROPHILS # (AUTO) 7.6 (2.1-6.9); NEUTROPHILS % 70.2 % (38.7-80.0); PLATELET COUNT 697 x10e3/uL (140-360); RED BLOOD COUNT 2.77 x10e6/uL (3.6-5.1); RED CELL DISTRIBUTION WIDTH 17.7 % (11.7-14.4); WHITE BLOOD COUNT 10.81 x10e3/uL (4.8-10.8)
[2023-12-22 07:05] LABS: ALBUMIN 1.4 g/dL (3.5-5.0); ALBUMIN/GLOBULIN RATIO 0.3 (0.8-2.0); ANION GAP 10.8 mmol/L (8-16); BILIRUBIN,TOTAL 0.3 mg/dL (0.2-1.2); CALCIUM 7.8 mg/dL (8.4-10.2); CREATININE, SERUM 0.52 mg/dL (0.57-1.11); POTASSIUM 3.8 mmol/L (3.5-5.1); TOTAL PROTEIN 6.6 g/dL (6.5-8.1)
[2023-12-22] MEDS ORDERED: IOPAMIDOL 370 MG/ML 100 ML INFUS..BTL INJ ONE (11:53)
[2023-12-22 14:12] LABS: INR 1.19; PROTHROMBIN TIME 15.7 seconds (11.9-14.5)
[2023-12-22 14:19] LABS: ABG HCO3 26 mmol/L (22-26); ABG PCO2 31 mmHg (35-45); ABG PH 7.54 (7.35-7.45); ABG PO2 96 mmHg (80-105)
[2023-12-22 14:20] LABS: ABG TCO2 27
[2023-12-22] MEDS ORDERED: Vancomycin IV 1 GM in SODIUM CHLORIDE 0.9% 250ML 250 ML IV SCH (14:30)
[2023-12-22 17:58] LABS: BODY FLUID APPEARANCE SL.CLOUDY; BODY FLUID COLOR YELLOW; BODY FLUID TYPE PLEURAL; WBC,BODY FLUID 543 cells/uL
[2023-12-22 17:59] LABS: RBC,BODY FLUID 2000 cells/uL
[2023-12-22] MEDS: Vancomycin IV 1 GM in SODIUM CHLORIDE 0.9% 250ML 250 ML IV SCH (18:21)
[2023-12-22 18:31] LABS: LYMPHOCYTES,BODY FLUID 33 %; MONO/MACROPHG,BODY FLUID 55 %; NEUTROPHILS,BODY FLUID 12 %; TOTAL CELLS COUNTED (DIFF) 100
[2023-12-22] MEDS: ESCITALOPRAM OXALATE 10 MG TAB PO SCH (21:00)
[2023-12-23] VITALS (28 sets, daily range): BP systolic 111–160; BP diastolic 71–114; PULSE 88–102; RESP 18–31; TEMP 97.8–98.4; O2SAT 93–100
[2023-12-23] MEDS: TRAMADOL HCL 50 MG TAB PO PRN (04:39)
[2023-12-23 05:18] LABS: BASOPHILS % 0.3 % (0.0-1.0); EOSINOPHILS # (AUTO) 0.3 (0.0-0.4); EOSINOPHILS % 2.6 % (0.0-6.0); HEMATOCRIT 25.1 % (34.2-44.1); HEMOGLOBIN 7.8 g/dL (12.0-16.0); LYMPHOCYTES # (AUTO) 1.1 (1.0-3.2); LYMPHOCYTES % 8.5 % (18.0-39.1); MEAN CORPUSCULAR HEMOGLOBIN 29.2 pg (28-32); MEAN CORPUSCULAR HGB CONC 31.1 g/dL (31-35); MONOCYTES # (AUTO) 1.2 (0.2-0.8); MONOCYTES % 9.2 % (4.4-11.3); NEUTROPHILS # (AUTO) 9.9 (2.1-6.9); NEUTROPHILS % 78.8 % (38.7-80.0); PLATELET COUNT 731 x10e3/uL (140-360); RED BLOOD COUNT 2.67 x10e6/uL (3.6-5.1); WHITE BLOOD COUNT 12.56 x10e3/uL (4.8-10.8)
[2023-12-23 05:46] LABS: ALBUMIN 1.5 g/dL (3.5-5.0); ALBUMIN/GLOBULIN RATIO 0.3 (0.8-2.0); ANION GAP 9.8 mmol/L (8-16); BILIRUBIN,TOTAL 0.3 mg/dL (0.2-1.2); CALCIUM 7.6 mg/dL (8.4-10.2); CREATININE, SERUM 0.53 mg/dL (0.57-1.11); POTASSIUM 3.8 mmol/L (3.5-5.1); TOTAL PROTEIN 6.4 g/dL (6.5-8.1)
[2023-12-23] MEDS ORDERED: LIDOCAINE HCL 1% LOCAL INJ 20 ML VIAL ONE (13:19)
[2023-12-24] VITALS (28 sets, daily range): BP systolic 111–146; BP diastolic 65–101; PULSE 80–104; RESP 20–35; TEMP 98.1–99.3; O2SAT 94–99
[2023-12-24 06:10] LABS: BASOPHILS # (AUTO) 0.1 (0.0-0.1); BASOPHILS % 0.4 % (0.0-1.0); EOSINOPHILS # (AUTO) 0.6 (0.0-0.4); EOSINOPHILS % 4.9 % (0.0-6.0); HEMATOCRIT 24.5 % (34.2-44.1); HEMOGLOBIN 7.7 g/dL (12.0-16.0); LYMPHOCYTES # (AUTO) 1.2 (1.0-3.2); LYMPHOCYTES % 10.1 % (18.0-39.1); MEAN CORPUSCULAR HEMOGLOBIN 29.7 pg (28-32); MEAN CORPUSCULAR HGB CONC 31.4 g/dL (31-35); MEAN CORPUSCULAR VOLUME 94.6 fL (81-99); MONOCYTES # (AUTO) 1.2 (0.2-0.8); MONOCYTES % 10.1 % (4.4-11.3); NEUTROPHILS # (AUTO) 8.4 (2.1-6.9); NEUTROPHILS % 73.6 % (38.7-80.0); PLATELET COUNT 674 x10e3/uL (140-360); RED BLOOD COUNT 2.59 x10e6/uL (3.6-5.1); RED CELL DISTRIBUTION WIDTH 17.6 % (11.7-14.4); WHITE BLOOD COUNT 11.44 x10e3/uL (4.8-10.8)
[2023-12-24 06:32] LABS: ALBUMIN 1.4 g/dL (3.5-5.0); ALBUMIN/GLOBULIN RATIO 0.3 (0.8-2.0); BILIRUBIN,TOTAL 0.3 mg/dL (0.2-1.2); CALCIUM 7.6 mg/dL (8.4-10.2); CREATININE, SERUM 0.49 mg/dL (0.57-1.11); MAGNESIUM 1.9 MG/DL (1.3-2.1); TOTAL PROTEIN 6.3 g/dL (6.5-8.1)
[2023-12-24] MEDS: LIDOCAINE 4% PATCH TP SCH (16:12)
[2023-12-24] MEDS: FUROSEMIDE INJ 10 MG/ML 2 ML VIAL IV ONE (16:29)
[2023-12-25] VITALS (32 sets, daily range): BP systolic 105–140; BP diastolic 63–109; PULSE 78–107; RESP 20–37; TEMP 98–99.2; O2SAT 89–100
[2023-12-25] MEDS: FUROSEMIDE INJ 10 MG/ML 2 ML VIAL IV ONE (04:59)
[2023-12-25 06:54] LABS: BASOPHILS % 0.1 % (0.0-1.0); EOSINOPHILS # (AUTO) 0.4 (0.0-0.4); EOSINOPHILS % 3.1 % (0.0-6.0); HEMATOCRIT 24.1 % (34.2-44.1); HEMOGLOBIN 7.5 g/dL (12.0-16.0); LYMPHOCYTES # (AUTO) 1.3 (1.0-3.2); LYMPHOCYTES % 10.3 % (18.0-39.1); MEAN CORPUSCULAR HEMOGLOBIN 28.8 pg (28-32); MEAN CORPUSCULAR HGB CONC 31.1 g/dL (31-35); MEAN CORPUSCULAR VOLUME 92.7 fL (81-99); MONOCYTES # (AUTO) 1.5 (0.2-0.8); MONOCYTES % 11.4 % (4.4-11.3); NEUTROPHILS # (AUTO) 9.4 (2.1-6.9); NEUTROPHILS % 74.3 % (38.7-80.0); PLATELET COUNT 669 x10e3/uL (140-360); RED CELL DISTRIBUTION WIDTH 17.2 % (11.7-14.4)
[2023-12-25 07:19] LABS: ALBUMIN 1.5 g/dL (3.5-5.0); ALBUMIN/GLOBULIN RATIO 0.3 (0.8-2.0); ANION GAP 10.5 mmol/L (8-16); BILIRUBIN,TOTAL 0.4 mg/dL (0.2-1.2); CALCIUM 7.4 mg/dL (8.4-10.2); CREATININE, SERUM 0.49 mg/dL (0.57-1.11); POTASSIUM 3.5 mmol/L (3.5-5.1); TOTAL PROTEIN 6.4 g/dL (6.5-8.1)
[2023-12-26] VITALS (39 sets, daily range): BP systolic 111–145; BP diastolic 62–103; PULSE 84–100; RESP 18–34; TEMP 98.7–99.6; O2SAT 92–100
[2023-12-26] MEDS: FUROSEMIDE INJ 10 MG/ML 2 ML VIAL IV ONE (00:52)
[2023-12-26 06:13] LABS: BASOPHILS % 0.3 % (0.0-1.0); EOSINOPHILS # (AUTO) 0.5 (0.0-0.4); EOSINOPHILS % 4.1 % (0.0-6.0); HEMATOCRIT 24.2 % (34.2-44.1); HEMOGLOBIN 7.5 g/dL (12.0-16.0); LYMPHOCYTES # (AUTO) 1.4 (1.0-3.2); LYMPHOCYTES % 11.6 % (18.0-39.1); MEAN CORPUSCULAR VOLUME 93.4 fL (81-99); MONOCYTES # (AUTO) 1.3 (0.2-0.8); MONOCYTES % 10.3 % (4.4-11.3); NEUTROPHILS # (AUTO) 8.9 (2.1-6.9); PLATELET COUNT 609 x10e3/uL (140-360); RED BLOOD COUNT 2.59 x10e6/uL (3.6-5.1); RED CELL DISTRIBUTION WIDTH 17.5 % (11.7-14.4); WHITE BLOOD COUNT 12.19 x10e3/uL (4.8-10.8)
[2023-12-26 06:32] LABS: ALBUMIN 1.5 g/dL (3.5-5.0); ALBUMIN/GLOBULIN RATIO 0.3 (0.8-2.0); ANION GAP 10.7 mmol/L (8-16); BILIRUBIN,TOTAL 0.3 mg/dL (0.2-1.2); CALCIUM 7.7 mg/dL (8.4-10.2); CREATININE, SERUM 0.49 mg/dL (0.57-1.11); POTASSIUM 3.7 mmol/L (3.5-5.1); TOTAL PROTEIN 6.3 g/dL (6.5-8.1)
[2023-12-26] MEDS: ONDANSETRON HCL INJ 2MG/ML 2ML 2 MG/ML VIAL IV SCH (08:49)
[2023-12-27] VITALS (27 sets, daily range): BP systolic 103–144; BP diastolic 67–98; PULSE 85–101; RESP 20–35; TEMP 98.4–100; O2SAT 93–99
[2023-12-27 06:47] LABS: TOTAL PROTEIN,BODY FLUID 3.4 g/dL
[2023-12-27 06:59] LABS: BASOPHILS # (AUTO) 0.1 (0.0-0.1); BASOPHILS % 0.5 % (0.0-1.0); EOSINOPHILS # (AUTO) 0.7 (0.0-0.4); EOSINOPHILS % 5.2 % (0.0-6.0); HEMATOCRIT 23.9 % (34.2-44.1); HEMOGLOBIN 7.4 g/dL (12.0-16.0); LYMPHOCYTES # (AUTO) 1.6 (1.0-3.2); LYMPHOCYTES % 12.7 % (18.0-39.1); MEAN CORPUSCULAR HEMOGLOBIN 28.9 pg (28-32); MEAN CORPUSCULAR VOLUME 93.4 fL (81-99); MONOCYTES # (AUTO) 1.4 (0.2-0.8); MONOCYTES % 10.8 % (4.4-11.3); NEUTROPHILS # (AUTO) 8.8 (2.1-6.9); PLATELET COUNT 650 x10e3/uL (140-360); RED BLOOD COUNT 2.56 x10e6/uL (3.6-5.1); RED CELL DISTRIBUTION WIDTH 17.6 % (11.7-14.4); WHITE BLOOD COUNT 12.55 x10e3/uL (4.8-10.8)
[2023-12-27 07:36] LABS: ALBUMIN 1.4 g/dL (3.5-5.0); ALBUMIN/GLOBULIN RATIO 0.3 (0.8-2.0); BILIRUBIN,TOTAL 0.2 mg/dL (0.2-1.2); CALCIUM 7.9 mg/dL (8.4-10.2); CREATININE, SERUM 0.49 mg/dL (0.57-1.11); TOTAL PROTEIN 6.3 g/dL (6.5-8.1)
[2023-12-27] MEDS: AMIODARONE HCL 200 MG TAB PO SCH (10:51)
[2023-12-27] MEDS: CENTRAL TPN FORMULA 1 BAG IV SCH (20:33)
[2023-12-28] VITALS (24 sets, daily range): BP systolic 96–144; BP diastolic 60–92; PULSE 91–118; RESP 18–36; TEMP 98.5–99; O2SAT 92–99
[2023-12-28] MEDS: MELATONIN 5 MG TABLET PO STA (02:37)
[2023-12-28 07:08] LABS: BASOPHILS % 0.3 % (0.0-1.0); EOSINOPHILS # (AUTO) 0.7 (0.0-0.4); HEMATOCRIT 23.7 % (34.2-44.1); HEMOGLOBIN 7.4 g/dL (12.0-16.0); LYMPHOCYTES # (AUTO) 1.4 (1.0-3.2); LYMPHOCYTES % 10.5 % (18.0-39.1); MEAN CORPUSCULAR HEMOGLOBIN 29.2 pg (28-32); MEAN CORPUSCULAR HGB CONC 31.2 g/dL (31-35); MEAN CORPUSCULAR VOLUME 93.7 fL (81-99); MONOCYTES # (AUTO) 1.2 (0.2-0.8); MONOCYTES % 9.3 % (4.4-11.3); NEUTROPHILS # (AUTO) 9.8 (2.1-6.9); NEUTROPHILS % 74.4 % (38.7-80.0); PLATELET COUNT 716 x10e3/uL (140-360); RED BLOOD COUNT 2.53 x10e6/uL (3.6-5.1); RED CELL DISTRIBUTION WIDTH 17.8 % (11.7-14.4); WHITE BLOOD COUNT 13.11 x10e3/uL (4.8-10.8)
[2023-12-28 07:40] LABS: ALBUMIN 1.5 g/dL (3.5-5.0); ALBUMIN/GLOBULIN RATIO 0.3 (0.8-2.0); ANION GAP 11.1 mmol/L (8-16); BILIRUBIN,TOTAL 0.2 mg/dL (0.2-1.2); CALCIUM 7.5 mg/dL (8.4-10.2); CREATININE, SERUM 0.51 mg/dL (0.57-1.11); POTASSIUM 4.1 mmol/L (3.5-5.1); TOTAL PROTEIN 6.7 g/dL (6.5-8.1)
[2023-12-28] MEDS: CHLORDIAZEPOXIDE/CLIDINIUM 1 CAP PO SCH (08:27)
[2023-12-28 12:54] LABS: INR 1.17; PROTHROMBIN TIME 15.5 seconds (11.9-14.5)
[2023-12-28] MEDS: CENTRAL TPN FORMULA 1 BAG IV SCH (20:13)
[2023-12-28] MEDS: MELATONIN 5 MG TABLET PO SCH (20:15)
[2023-12-29] VITALS (25 sets, daily range): BP systolic 104–145; BP diastolic 63–113; PULSE 95–116; RESP 18–38; TEMP 98.4–98.9; O2SAT 92–100
[2023-12-29 06:47] LABS: BASOPHILS % 0.4 % (0.0-1.0); EOSINOPHILS # (AUTO) 0.5 (0.0-0.4); EOSINOPHILS % 4.9 % (0.0-6.0); HEMATOCRIT 23.7 % (34.2-44.1); HEMOGLOBIN 7.5 g/dL (12.0-16.0); LYMPHOCYTES # (AUTO) 1.2 (1.0-3.2); LYMPHOCYTES % 11.1 % (18.0-39.1); MEAN CORPUSCULAR HEMOGLOBIN 29.2 pg (28-32); MEAN CORPUSCULAR HGB CONC 31.6 g/dL (31-35); MEAN CORPUSCULAR VOLUME 92.2 fL (81-99); MONOCYTES % 8.9 % (4.4-11.3); NEUTROPHILS # (AUTO) 8.1 (2.1-6.9); NEUTROPHILS % 74.1 % (38.7-80.0); PLATELET COUNT 646 x10e3/uL (140-360); RED BLOOD COUNT 2.57 x10e6/uL (3.6-5.1); WHITE BLOOD COUNT 10.89 x10e3/uL (4.8-10.8)
[2023-12-29 07:03] LABS: ALBUMIN 1.5 g/dL (3.5-5.0); ALBUMIN/GLOBULIN RATIO 0.3 (0.8-2.0); ANION GAP 10.2 mmol/L (8-16); BILIRUBIN,TOTAL 0.3 mg/dL (0.2-1.2); CALCIUM 7.9 mg/dL (8.4-10.2); CREATININE, SERUM 0.51 mg/dL (0.57-1.11); MAGNESIUM 1.8 MG/DL (1.3-2.1); POTASSIUM 4.2 mmol/L (3.5-5.1); TOTAL PROTEIN 6.2 g/dL (6.5-8.1)
[2023-12-29] MEDS ORDERED: MAGNESIUM HYDROXIDE 30 ML UDC PO PRN (12:15)
[2023-12-29] MEDS ORDERED: MINERAL OIL 132 ML BTL PR PRN (12:15)
[2023-12-29] MEDS: MAGNESIUM HYDROXIDE 30 ML UDC PO ONE (13:38)
[2023-12-29] MEDS: SENNA-S TABLET PO SCH (16:38)
== END 2023-12-29 20:30 | DRG 326 ==
LOC: ER 11:45 → ERHOLD 14:13 → MED/SURG3 16:24 → OBSVTOIN 11-26 12:20 → ICU 11-26 19:45 → MED/SURG3 11-29 19:45 → ICU 12-05 21:11
PROVIDERS: ADMIT Internal Medicine; ATTEND Internal Medicine
PROC: 0DC38ZZ Extirpation of Matter from Lower Esophagus, Via Natural or Artificial Opening Endoscopic (ICD-10-PCS; 2023-11-25)
PROC: 0DV40ZZ Restriction of Esophagogastric Junction, Open Approach (ICD-10-PCS; 2023-11-26)
PROC: 0BQT0ZZ Repair Diaphragm, Open Approach (ICD-10-PCS; principal; 2023-11-26 15:55)
PROC: 07TP0ZZ Resection of Spleen, Open Approach (ICD-10-PCS; 2023-11-26 15:55)
PROC: 02HV33Z Insertion of Infusion Device into Superior Vena Cava, Percutaneous Approach (ICD-10-PCS; 2023-11-29)
PROC: 0W9G30Z Drainage of Peritoneal Cavity with Drainage Device, Percutaneous Approach (ICD-10-PCS; 2023-12-04)
PROC: 0T9B70Z Drainage of Bladder with Drainage Device, Via Natural or Artificial Opening (ICD-10-PCS; 2023-12-04)
PROC: 3E0333Z Introduction of Anti-inflammatory into Peripheral Vein, Percutaneous Approach (ICD-10-PCS; 2023-12-04)
PROC: 30233N1 Transfusion of Nonautologous Red Blood Cells into Peripheral Vein, Percutaneous Approach (ICD-10-PCS; 2023-12-06)
PROC: 0DV40ZZ Restriction of Esophagogastric Junction, Open Approach (ICD-10-PCS; 2023-12-07)
PROC: 0W9G0ZZ Drainage of Peritoneal Cavity, Open Approach (ICD-10-PCS; 2023-12-07)
PROC: 4A133R1 Monitoring of Arterial Saturation, Peripheral, Percutaneous Approach (ICD-10-PCS; 2023-12-07)
PROC: 0DQ30ZZ Repair Lower Esophagus, Open Approach (ICD-10-PCS; 2023-12-07)
PROC: 3E0336Z Introduction of Nutritional Substance into Peripheral Vein, Percutaneous Approach (ICD-10-PCS; 2023-12-07)
PROC: 0W9B3ZZ Drainage of Left Pleural Cavity, Percutaneous Approach (ICD-10-PCS; 2023-12-08)
PROC: 0W9B3ZZ Drainage of Left Pleural Cavity, Percutaneous Approach (ICD-10-PCS; 2023-12-22)
PROC: 02HV33Z Insertion of Infusion Device into Superior Vena Cava, Percutaneous Approach (ICD-10-PCS; 2023-12-22)
PROC: 0W9G3ZZ Drainage of Peritoneal Cavity, Percutaneous Approach (ICD-10-PCS; 2023-12-23)
PROC: 0W993ZZ Drainage of Right Pleural Cavity, Percutaneous Approach (ICD-10-PCS; 2023-12-28)
DX: K44.9 Diaphragmatic hernia without obstruction or gangrene (principal); A41.81 Sepsis due to Enterococcus; K22.3 Perforation of esophagus; K65.1 Peritoneal abscess; E43 Unspecified severe protein-calorie malnutrition; K56.2 Volvulus; J96.01 Acute respiratory failure with hypoxia; R65.20 Severe sepsis without septic shock; J69.0 Pneumonitis due to inhalation of food and vomit; J90 Pleural effusion, not elsewhere classified; K31.1 Adult hypertrophic pyloric stenosis; D62 Acute posthemorrhagic anemia; B37.89 Other sites of candidiasis; I47.10 Supraventricular tachycardia, unspecified; E78.5 Hyperlipidemia, unspecified; I10 Essential (primary) hypertension; K21.00 Gastro-esophageal reflux disease with esophagitis, without bleeding; E87.6 Hypokalemia; R11.10 Vomiting, unspecified; F32.A Depression, unspecified; K29.70 Gastritis, unspecified, without bleeding; E83.42 Hypomagnesemia; F41.8 Other specified anxiety disorders; R33.9 Retention of urine, unspecified; I95.9 Hypotension, unspecified; I48.0 Paroxysmal atrial fibrillation; R53.81 Other malaise; Z68.34 Body mass index [BMI] 34.0-34.9, adult; Z85.3 Personal history of malignant neoplasm of breast; Z90.12 Acquired absence of left breast and nipple; Z88.5 Allergy status to narcotic agent; Z82.49 Family history of ischemic heart disease and other diseases of the circulatory system
CPT/HCPCS: 10160; 32555; 36415; 36569; 36584; 36600; 43235; 49406; 71045; 71260; 72040; 74176; 74177; 74246; 74470; 76000; 76604; 77012; 78227; 80048; 80053; 80202; 82550; 82805; 82945; 82948; 83540; 83605; 83615; 83690; 83735; 84100; 84157; 84443; 84466; 84484; 85014; 85018; 85025; 85379; 85610; 85730; 86850; 86900; 86920; 87040; 87070; 87071; 87075; 87102; 87116; 87186; 87205; 87206; 87324; 87449; 88112; 88302; 88305; 89051; 93005; 93306; 93970; 94640; 94799; 99252; 99284; A9537; C1729; G0378; J0171; J0330; J0694; J0696; J1100; J1160; J1170; J1335; J1450; J1644; J1650; J1756; J1885; J1940; J2001; J2060; J2185; J2248; J2250; J2270; J2371; J2405; J2470; J2543; J2765; J2795; J2997; J3475; J3480; J7030; J7040; J7050; P9016; Q9963; Q9967

== ENCOUNTER → 2024-01-31 | Outpatient (REF) | payer OTHER ==
[~2024-01-31] MED LIST changes: +ANASTROZOLE PO; +ATORVASTATIN CA20 MG PO; +CALCIUM MAGNES1 EAC2; +CEFTRIAXONE 1 GM VIAL ONE; +CENTRUM ADULTS1 EACH PO; +ESCITALOPRAM OX20 MG PO; +FENTANYL CITRATE/PF 100MCG/2 ML INJ ONE; +LIDOCAINE HCL 1% LOCAL INJ 20 ML VIAL ONE; +MIDAZOLAM HCL 2 MG/2 ML VIAL ONE; +OLMESARTAN-HCT1 EACH PO; +PRESERVISION A1 EAC2; +SODIUM CHLORIDE 0.9% 250ML 250 ML ONE; +VITAMIN D350 MC1 PO
[2024-01-31 13:02] LABS: INR 1.03
[2024-01-31 13:03] LABS: PARTIAL THROMBOPLASTIN TIME 26.9 seconds (23.8-35.5)
== END ==
LOC: CT 12:29
PROVIDERS: ATTEND Internal Medicine
DX: L02.211 Cutaneous abscess of abdominal wall (principal)
CPT/HCPCS: 36415; 49406; 71045; 76942; 85610; 85730; 87070; 87071; 87075; 87186; 87205; J0696; J2003; J7050; 10160; J2250

== ENCOUNTER → 2024-03-08 | Outpatient (REF) | payer OTHER ==
[~2024-03-08] MED LIST changes: -CEFTRIAXONE 1 GM VIAL ONE; -FENTANYL CITRATE/PF 100MCG/2 ML INJ ONE; +IOPAMIDOL 370 MG/ML 100 ML INFUS..BTL INJ ONE; -LIDOCAINE HCL 1% LOCAL INJ 20 ML VIAL ONE; -MIDAZOLAM HCL 2 MG/2 ML VIAL ONE; -SODIUM CHLORIDE 0.9% 250ML 250 ML ONE
[2024-03-08 15:47] LABS: CREATININE, SERUM 0.65 mg/dL (0.57-1.11)
== END ==
LOC: CT 14:37
PROVIDERS: ATTEND Internal Medicine
DX: R10.12 Left upper quadrant pain (principal)
CPT/HCPCS: 36415; 74177; 82565; 84520; Q9967

== ENCOUNTER 2024-03-23 06:06 | Inpatient (IN) | payer OTHER ==
[~2024-03-23] VITALS: Ht 167.6 cm; Wt 75.1 kg
[2024-03-23] VITALS (7 sets, daily range): BP systolic 113–125; BP diastolic 71–78; PULSE 68–83; RESP 16–21; TEMP 97.8–98.8; O2SAT 97–98
[~2024-03-23 06:06] MED LIST changes: -IOPAMIDOL 370 MG/ML 100 ML INFUS..BTL INJ ONE
[2024-03-23 06:44] LABS: BASOPHILS # (AUTO) 0.1 (0.0-0.1); BASOPHILS % 0.5 % (0.0-1.0); EOSINOPHILS # (AUTO) 1.8 (0.0-0.4); EOSINOPHILS % 14.3 % (0.0-6.0); HEMOGLOBIN 11.8 g/dL (12.0-16.0); LYMPHOCYTES % 23.1 % (18.0-39.1); MEAN CORPUSCULAR HEMOGLOBIN 27.1 pg (28-32); MEAN CORPUSCULAR HGB CONC 31.9 g/dL (31-35); MEAN CORPUSCULAR VOLUME 85.1 fL (81-99); MONOCYTES # (AUTO) 0.7 (0.2-0.8); MONOCYTES % 5.6 % (4.4-11.3); NEUTROPHILS # (AUTO) 7.2 (2.1-6.9); NEUTROPHILS % 56.2 % (38.7-80.0); PLATELET COUNT 666 x10e3/uL (140-360); RED BLOOD COUNT 4.35 x10e6/uL (3.6-5.1); RED CELL DISTRIBUTION WIDTH 16.7 % (11.7-14.4); WHITE BLOOD COUNT 12.75 x10e3/uL (4.8-10.8)
[2024-03-23 07:12] LABS: ALBUMIN 3.3 g/dL (3.5-5.0); ALBUMIN/GLOBULIN RATIO 0.7 (0.8-2.0); ANION GAP 15.9 mmol/L (8-16); BILIRUBIN,TOTAL 0.3 mg/dL (0.2-1.2); CALCIUM 9.6 mg/dL (8.4-10.2); CREATININE, SERUM 0.71 mg/dL (0.57-1.11); POTASSIUM 3.9 mmol/L (3.5-5.1); TOTAL PROTEIN 8.1 g/dL (6.5-8.1)
[2024-03-23] MEDS ORDERED: IOPAMIDOL 370 MG/ML 100 ML INFUS..BTL INJ ONE (07:15)
[2024-03-23] MEDS: SODIUM CHLORIDE 0.9% 1000ML 1,000 ML IV ONE (07:24)
[2024-03-23 07:36] LABS: CLARITY,URINE SL CLOUDY (CLEAR); COLOR,URINE YELLOW (YELLOW)
[2024-03-23 07:37] LABS: BACTERIA,URINE MODERATE /HPF; BILIRUBIN,URINE NEGATIVE (NEGATIVE); CALCIUM OXALATE CRYSTALS,UR FEW (FEW); EPITHELIAL CELLS,URINE FEW /LPF; GLUCOSE, URINE NEGATIVE (NEGATIVE); KETONES,URINE NEGATIVE (NEGATIVE); LEUKOCYTE ESTERASE ,URINE SMALL (NEGATIVE); NITRITE,URINE NEGATIVE (NEGATIVE); PH,URINE 5.5 (5 - 7); PROTEIN,URINE DIPSTICK NEGATIVE (NEGATIVE); RBC,URINE 0-5 /HPF (0-5); URINE UROBILINOGEN 0.2 mg/dL (0.2 - 1)
[2024-03-23] MEDS ORDERED: ONDANSETRON HCL INJ 2MG/ML 2ML 2 MG/ML VIAL IV PRN (09:00)
[2024-03-23] MEDS: SODIUM CHLORIDE 0.9% 1000ML 1,000 ML IV SCH (10:55)
[2024-03-23] MEDS: ONDANSETRON HCL INJ 2MG/ML 2ML 2 MG/ML VIAL IV STA (14:19)
[2024-03-23] MEDS: FENTANYL CITRATE/PF 100MCG/2 ML INJ IV ONE (14:19)
[2024-03-24] VITALS (9 sets, daily range): BP systolic 115–133; BP diastolic 64–76; PULSE 64–83; RESP 16–21; TEMP 97.7–98.2; O2SAT 96–98
[2024-03-24 06:17] LABS: BASOPHILS # (AUTO) 0.1 (0.0-0.1); BASOPHILS % 0.5 % (0.0-1.0); EOSINOPHILS # (AUTO) 1.8 (0.0-0.4); EOSINOPHILS % 14.8 % (0.0-6.0); HEMATOCRIT 34.5 % (34.2-44.1); HEMOGLOBIN 10.9 g/dL (12.0-16.0); LYMPHOCYTES # (AUTO) 2.2 (1.0-3.2); LYMPHOCYTES % 17.5 % (18.0-39.1); MEAN CORPUSCULAR HEMOGLOBIN 26.8 pg (28-32); MEAN CORPUSCULAR HGB CONC 31.6 g/dL (31-35); MEAN CORPUSCULAR VOLUME 84.8 fL (81-99); MONOCYTES # (AUTO) 0.8 (0.2-0.8); MONOCYTES % 6.2 % (4.4-11.3); NEUTROPHILS # (AUTO) 7.5 (2.1-6.9); NEUTROPHILS % 60.8 % (38.7-80.0); PLATELET COUNT 588 x10e3/uL (140-360); RED BLOOD COUNT 4.07 x10e6/uL (3.6-5.1); WHITE BLOOD COUNT 12.32 x10e3/uL (4.8-10.8)
[2024-03-24 06:33] LABS: INR 1.02
[2024-03-24 06:34] LABS: PARTIAL THROMBOPLASTIN TIME 26.9 seconds (23.8-35.5)
[2024-03-24 06:50] LABS: ALBUMIN 2.6 g/dL (3.5-5.0); ALBUMIN/GLOBULIN RATIO 0.7 (0.8-2.0); ANION GAP 11.8 mmol/L (8-16); BILIRUBIN,TOTAL 0.3 mg/dL (0.2-1.2); CALCIUM 8.5 mg/dL (8.4-10.2); CREATININE, SERUM 0.59 mg/dL (0.57-1.11); POTASSIUM 3.8 mmol/L (3.5-5.1); TOTAL PROTEIN 6.3 g/dL (6.5-8.1)
[2024-03-24] MEDS: ESCITALOPRAM OXALATE 10 MG TAB PO SCH (09:00)
[2024-03-24] MEDS ORDERED: LIDOCAINE HCL 1% 30ML-PF VIAL ONE (11:52)
[2024-03-24 14:49] LABS: BODY FLUID COLOR STRAW; BODY FLUID TYPE PERITONEAL
[2024-03-24 14:50] LABS: BODY FLUID APPEARANCE TURBID
[2024-03-24] MEDS: METOPROLOL SUCCINATE 50 MG TAB XL PO SCH (16:29)
[2024-03-24] MEDS: ACETAMINOPHEN 325 MG TAB PO PRN (17:31)
[2024-03-24] MEDS: ATORVASTATIN 20 MG TAB PO SCH (20:20)
[2024-03-25] VITALS (8 sets, daily range): BP systolic 115–138; BP diastolic 60–71; PULSE 58–75; RESP 18–20; TEMP 97.7–98.2; O2SAT 93–97
[2024-03-26] VITALS (8 sets, daily range): BP systolic 137–151; BP diastolic 61–77; PULSE 66–70; RESP 18–19; TEMP 97.5–98; O2SAT 95–99
[2024-03-27] VITALS (9 sets, daily range): BP systolic 132–152; BP diastolic 70–84; PULSE 52–69; RESP 18–20; TEMP 97.6–98.1; O2SAT 95–98
[2024-03-27 08:11] LABS: BASOPHILS # (AUTO) 0.1 (0.0-0.1); BASOPHILS % 1.2 % (0.0-1.0); EOSINOPHILS # (AUTO) 0.9 (0.0-0.4); EOSINOPHILS % 11.2 % (0.0-6.0); HEMATOCRIT 36.4 % (34.2-44.1); HEMOGLOBIN 10.9 g/dL (12.0-16.0); LYMPHOCYTES # (AUTO) 2.8 (1.0-3.2); LYMPHOCYTES % 36.5 % (18.0-39.1); MEAN CORPUSCULAR HEMOGLOBIN 26.9 pg (28-32); MEAN CORPUSCULAR HGB CONC 29.9 g/dL (31-35); MEAN CORPUSCULAR VOLUME 89.9 fL (81-99); MONOCYTES # (AUTO) 0.5 (0.2-0.8); MONOCYTES % 6.5 % (4.4-11.3); NEUTROPHILS # (AUTO) 3.4 (2.1-6.9); NEUTROPHILS % 44.2 % (38.7-80.0); PLATELET COUNT 513 x10e3/uL (140-360); RED BLOOD COUNT 4.05 x10e6/uL (3.6-5.1); RED CELL DISTRIBUTION WIDTH 17.5 % (11.7-14.4); WHITE BLOOD COUNT 7.75 x10e3/uL (4.8-10.8)
[2024-03-27 08:40] LABS: ALBUMIN 2.6 g/dL (3.5-5.0); ALBUMIN/GLOBULIN RATIO 0.7 (0.8-2.0); ANION GAP 12.9 mmol/L (8-16); BILIRUBIN,TOTAL 0.2 mg/dL (0.2-1.2); CALCIUM 7.8 mg/dL (8.4-10.2); CREATININE, SERUM 0.49 mg/dL (0.57-1.11); MAGNESIUM 1.4 MG/DL (1.3-2.1); TOTAL PROTEIN 6.1 g/dL (6.5-8.1)
[2024-03-27 08:46] LABS: POTASSIUM 2.9 mmol/L (3.5-5.1)
[2024-03-27] MEDS ORDERED: POTASSIUM CHLORIDE 10MEQ EA PO ONE (09:00)
[2024-03-27] MEDS: POTASSIUM CHLORIDE 10MEQ EA PO ONE (09:23)
[2024-03-28 03:35] VITALS: BP 146/77; PULSE 78; RESP 18; TEMP 98; O2SAT 94
[2024-03-28 07:55] VITALS: BP 143/76; PULSE 68; RESP 18; TEMP 97.9; O2SAT 97
== END 2024-03-28 08:45 | disposition home or self-care (01) | DRG 372 ==
LOC: ER 06:11 → ERHOLD 08:56 → MED/SURG2 14:00
PROVIDERS: ADMIT Internal Medicine; ATTEND Internal Medicine
PROC: 0W9G30Z Drainage of Peritoneal Cavity with Drainage Device, Percutaneous Approach (ICD-10-PCS; principal; 2024-03-24)
DX: K65.1 Peritoneal abscess (principal); E44.0 Moderate protein-calorie malnutrition; R18.8 Other ascites; N39.0 Urinary tract infection, site not specified; I10 Essential (primary) hypertension; E78.5 Hyperlipidemia, unspecified; F41.9 Anxiety disorder, unspecified; Z68.26 Body mass index [BMI] 26.0-26.9, adult; Z85.3 Personal history of malignant neoplasm of breast; Z88.5 Allergy status to narcotic agent
CPT/HCPCS: 36415; 49406; 74177; 74470; 77012; 80053; 81001; 83605; 83690; 83735; 85025; 85610; 85730; 87040; 87070; 87071; 87075; 87205; 89051; 93005; 99152; 99284; C1729; C1769; J0696; J2003; J2405; J2543; J7030; Q9967

== ENCOUNTER → 2024-04-10 | Outpatient (REF) | payer OTHER ==
[~2024-04-10] MED LIST changes: +DIATRIZOATE MEGL/DIATRIZOA SOD 30 ML BTL PO ONE; +IOPAMIDOL 370 MG/ML 100 ML INFUS..BTL INJ ONE
[2024-04-10 15:57] LABS: CREATININE, SERUM 0.67 mg/dL (0.57-1.11)
== END ==
LOC: CT 14:41
PROVIDERS: ATTEND Surgery
DX: L02.211 Cutaneous abscess of abdominal wall (principal); J90 Pleural effusion, not elsewhere classified
CPT/HCPCS: 36415; 74160; 82565; 84520; Q9963; Q9967